=== PATIENT | female | born 1940 | race Caucasian/White ===

== ENCOUNTER 2017-09-27 10:45 | Inpatient (IN) | payer OTHER ==
[~2017-09-27] VITALS: Ht 157.5 cm; Wt 99.5 kg
[2017-09-27 13:18] VITALS: BP 132/67; PULSE 87; TEMP 36.6; O2SAT 94
[2017-09-27 14:08] VITALS: BP 132/67; PULSE 87; TEMP 36.6; Ht 157.5 cm; Wt 99.5 kg
[2017-09-27] MEDS ORDERED: ACET1TAB84 PO (14:29)
--- NOTE | 2017-09-27 14:49 | Medical Consult ---
Consultation Date of Consultation: Sep 27, 2017. Attending Physician: Jesus Goss D.O. Reason for Consultation: Medical Management for DM II, Asthma, CKD III, Pain control and other problems History of Present Illness Patient is a 77-year-old female with past medical history DM II, CKD III, chronic anemia, asthma, anxiety and depression, dyslipidemia, spinal stenosis of lumbar region, HTN, chronic venous stasis, osteoarthritis and other problems was a direct admit for management of her back pain by Dr. Goss. She was asked to be evaluated for medical management while hospitalization. Patient states she has been having ambulatory dysfunction, low back pain radiating the right lower extremity and she was evaluated at [facility] and was diagnosed to have urinary tract infection and was discharged to rehab facility. Patient was admitted to [facility] for management of her back pain. She states having lower back pain radiating right lower extremity, dull aching type of pain, constant, 7/10 intensity, pain increases with exertion and movement, associated intermittent numbness and tingling in legs. She also reports bilateral lower extremity weakness and has been having ambulatory problems, uses a walker to ambulate. She reports having left foot drop 5 years ago. She was prescribed Bactrim for UTI. She continues to have dysuria but denies any history of fever, chills, hematuria. Denies any history of chest pain, SOB, dizziness, cough, wheezing, hemoptysis, headache, change in vision, nausea, vomiting, abdominal pain, diarrhea. Family History Father: Silicosis Mother:Dementia Social History Smoking Status: Former Smoker Alcohol Use: none Drug Use: none Allergies Coded Allergies: Aspirin (Verified Allergy, Unknown, 09/27/17) Hydrochlorothiazide (Verified Allergy, Unknown, 09/27/17) Home Medications Reviewed Review of Systems See HPI for pertinent positives & negatives. A total of 10 systems reviewed and were otherwise negative. Physical Exam Date Time Temp Pulse Resp B/P (MAP) Pulse Ox O2 Delivery O2 Flow Rate FiO2 09/27/17 14:08 36.6 87 17 132/67 Room Air 09/27/17 13:18 36.6 87 17 132/67 (88) 94 Room Air General Appearance: no apparent distress, + obese Head: normocephalic, atraumatic Eyes: normal inspection, PERRL, EOMI ENT: normal ENT inspection, hearing grossly normal Neck: supple, trachea midline Respiratory/Chest: chest non-tender, lungs clear, normal breath sounds, no respiratory distress, no accessory muscle use Cardiovascular: regular rate, rhythm, no murmur, + pertinent finding (chronic leg edema) Abdomen/GI: normal bowel sounds, soft, + tenderness (Mild suprapubic pressure) Back: normal inspection, + paravertebral tenderness (Lumbar region), + pertinent finding (Vertebral lumbar region) Extremities/Musculoskelatal: normal inspection, + pedal edema Neurologic/Psych: classer II-XII nml as tested, alert, normal mood/affect, oriented x 3, + pertinent finding (B/L LE weakness L>R, sensation normal) Skin: normal color, warm/dry Laboratory Results Labs reviewed CXR: No active disease in the chest. Assessment & Plan Spinal Stenosis: Planned for surgery by Activity, Pain control per Ortho UTI: Urine culture: E.coli on 09/24/17 Patient still has dysuria Hold Bactrim (Supposed to complete on 09/30/17) Start Ceftriaxone DM II Last A1C:5.1 on 03/25/17 Will hold oral diabetic meds Update A1c: ISS, basal Insulin, Accu checks, Diabetic diet CKD III Baseline Cr: Mid 1s Cr:1.6 today Bactrim discontinued Monitor renal function May need to hold diuretics if renal function worsens Anemia of CKD Hb stable monitor Chronic Hyponatremia: Baseline Sodium: low 130s Likely 2/2 diuretics and UTI Gentle IV fluids Monitor Sodium levels H/O Asthma No signs of Exacerbation Continue home meds Anxiety and depression Stable continue home meds Dyslipidemia Continue Zetia HTN Stable monitor DVT Px: Heparin SQ Code Status: Full Code Disposition: Per Ortho Thank you for this consultation. We will follow the patient with you during their hospital stay. You can reach a member of the [facility] Hospitalist Team 09/09 via pager @ . will Continue to follow up the patient while patient is hospitalized
[2017-09-27] MEDS ORDERED: CARBOHYDRATES FOR HYPOGLYCEMIA PO PRN (15:00)
[2017-09-27] MEDS ORDERED: GLUCOSE 40% GEL 15 GM TUBE PO PRN (15:00)
[2017-09-27] MEDS ORDERED: GLUCAGON FOR INJ 1 MG VIAL SQ PRN (15:00)
[2017-09-27] MEDS ORDERED: DEXTROSE 50% 50 ML SYR IV PRN (15:00)
[2017-09-27] MEDS ORDERED: GLUCOSE 10 TABS/TUBE PO PRN (15:00)
[2017-09-27 15:31] VITALS: BP 126/71; PULSE 75; TEMP 36.9; O2SAT 93
--- NOTE | 2017-09-27 15:47 | DIAGNOSTIC IMAGING REPORT ---
TWO VIEW CHEST CLINICAL HISTORY: Preoperative examination. FINDINGS: AP and lateral chest radiographs are obtained. No prior studies are available for comparison at the time of dictation. The AP view is degraded by patient rotation. The heart is top normal for projection. The mediastinal contour is within normal limits. Nonspecific interstitial thickening is likely chronic. No airspace consolidation or pleural effusion is identified. A large calcified granuloma is seen at the left lung base. There is no pneumothorax. The skeletal structures are osteopenic. 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 Advanced arthritic change and deformity is present in both shoulders. Large calcified joint bodies are noted on the left. IMPRESSION: No active disease in the chest. Electronically signed by: Jaquan Diane M.D. 09/27/2017 3:46 PM Dictated Date/Time: 09/27/2017 3:44 PM
[2017-09-27] MEDS ORDERED: OMEP20CA9 PO (15:58)
[2017-09-27] MEDS ORDERED: ASPI-461 PO (15:58)
[2017-09-27] MEDS ORDERED: OXYC-164 PO (15:58)
[2017-09-27] MEDS ORDERED: TNR25 PO (15:58)
[2017-09-27] MEDS ORDERED: CHOL100027 PO (15:58)
[2017-09-27] MEDS ORDERED: GLUC10007 PO (15:58)
[2017-09-27] MEDS ORDERED: PLN5 PO (15:58)
[2017-09-27] MEDS ORDERED: CLOT1CRE12 EX (15:58)
[2017-09-27] MEDS ORDERED: SULF800T23 PO (15:58)
[2017-09-27] MEDS ORDERED: ASCO1CAP3 PO (15:58)
[2017-09-27] MEDS ORDERED: POTA10CA28 PO (15:58)
[2017-09-27] MEDS ORDERED: EZET10TA47 PO (15:58)
[2017-09-27] MEDS ORDERED: OXYC40TA34 PO (15:58)
[2017-09-27] MEDS ORDERED: SENN8.6C PO (15:58)
[2017-09-27] MEDS ORDERED: VALS320T PO (15:58)
[2017-09-27] MEDS ORDERED: FLUT0.15 INH (15:58)
[2017-09-27] MEDS ORDERED: TRMCR130WC TOP (15:58)
[2017-09-27] MEDS ORDERED: BACL1TAB PO (15:58)
[2017-09-27] MEDS ORDERED: BYTI10 SC (15:58)
[2017-09-27] MEDS ORDERED: NRN300 PO (15:58)
[2017-09-27] MEDS ORDERED: ADVIN25050 INH (15:58)
[2017-09-27] MEDS ORDERED: FURO40TA3 PO (15:58)
[2017-09-27] MEDS ORDERED: EFFSR75 PO (15:58)
[2017-09-27] MEDS ORDERED: GLC500 PO (15:58)
[2017-09-27] MEDS ORDERED: LORA10CA2 PO (15:58)
[2017-09-27] MEDS ORDERED: [UNRECOGNIZED DRUG - CODE] PO (15:58)
[2017-09-27 16:00] LABS: HEMATOCRIT 31.7 % (37-47); MEAN CELL VOLUME 88.5 fL (80-100); MEAN CORPUSCULAR HEMOGLOBIN 30.7 pg (25-34); MEAN CORPUSCULAR HGB CONC 34.7 g/dl (32-36); MEAN PLATELET VOLUME 9.9 fL (7.4-10.4); PLATELET COUNT 264 K/uL (130-400); RED CELL DISTRIBUTION WIDTH SD 41.8 fL (36.4-46.3); WHITE BLOOD COUNT 8.81 K/uL (4.8-10.8)
[2017-09-27] MEDS ORDERED: LEVALBUTEROL 0.63MG/3 ML NEB INH PRN (16:00)
[2017-09-27] MEDS ORDERED: OXYCODONE HCL IR 5 MG TAB (IMMEDIATE RELEASE) PO PRN (16:00)
[2017-09-27] MEDS ORDERED: POLYETHYLENE (MIRALAX) 17 GM PACK PO PRN (16:15)
[2017-09-27 16:18] LABS: CREATININE 1.62 mg/dl (0.60-1.20); POTASSIUM 4.7 mmol/L (3.5-5.1)
[2017-09-27] MEDS: CEFTRIAXONE SOD INJ 1 GM in DEXTROSE 5% ADD-VANTAGE 50ML 50 ML IV SCH (16:27)
[2017-09-27] MEDS ORDERED: SODIUM CHLORIDE 0.9% 1000ML 500 ML IV ONE (17:30)
[2017-09-27] MEDS: INSULIN ASPART 100 UNITS/ML 3 ML PEN SC SCH ×2 (18:31→21:00)
[2017-09-27 21:00] VITALS: BP 136/65; PULSE 75
[2017-09-27] MEDS: TRIAMCINOLONE ACET 0.1% CR 15 GM TUBE EXT SCH (21:00)
[2017-09-27] MEDS ORDERED: FLUTICASONE/SALMETEROL 250/50 (ADVAIR) 14 PUFF/1 INHALER INH SCH (21:00)
[2017-09-27] MEDS: SENNA 8.6 MG TAB PO SCH (21:21)
[2017-09-27] MEDS: GABAPENTIN 300 MG CAP PO SCH (21:21)
[2017-09-27] MEDS: PANTOprazole SOD 40 MG TAB PO SCH (21:21)
[2017-09-27] MEDS: OXYCODONE HCL 40 MG TABCR (OXYCONTIN) PO SCH (21:22)
[2017-09-27] MEDS: POTASSIUM CHLORIDE 10 MEQ TABCR PO SCH (21:22)
[2017-09-27] MEDS: FLUTICASONE/SALMETEROL 250/50 (ADVAIR) 14 PUFF/1 INHALER INH SCH (21:22)
[2017-09-27] MEDS: INSULIN GLARGINE SOLOSTAR 100 UNITS/ML 3 ML PEN SC SCH (21:25)
[2017-09-27] MEDS: HEPARIN SOD 5000 UNIT/0.5 ML CARP SQ SCH (21:26)
[2017-09-27 23:01] VITALS: BP 122/60; PULSE 79; TEMP 36.8; O2SAT 97
[2017-09-27] MEDS: BACLOFEN 10 MG TAB PO PRN (23:49)
[2017-09-28] MEDS: HEPARIN SOD 5000 UNIT/0.5 ML CARP SQ SCH ×3 (05:49→21:28)
[2017-09-28 07:11] VITALS: BP 137/72; PULSE 66; TEMP 36.8; O2SAT 98
[2017-09-28 07:27] LABS: HEMATOCRIT 28.8 % (37-47); HEMOGLOBIN 9.7 g/dL (12.0-16.0); MEAN CELL VOLUME 88.3 fL (80-100); MEAN CORPUSCULAR HEMOGLOBIN 29.8 pg (25-34); MEAN CORPUSCULAR HGB CONC 33.7 g/dl (32-36); MEAN PLATELET VOLUME 9.4 fL (7.4-10.4); PLATELET COUNT 193 K/uL (130-400); RED CELL DISTRIBUTION WIDTH CV 12.8 % (11.5-14.5); RED CELL DISTRIBUTION WIDTH SD 41.4 fL (36.4-46.3)
[2017-09-28 07:57] LABS: CALCIUM 8.3 mg/dl (8.5-10.1); CREATININE 1.39 mg/dl (0.60-1.20); POTASSIUM 4.2 mmol/L (3.5-5.1)
[2017-09-28] MEDS: LORATADINE 10 MG TAB PO SCH (08:44)
[2017-09-28] MEDS: GABAPENTIN 300 MG CAP PO SCH ×2 (08:45→21:16)
[2017-09-28] MEDS: VENLAFAXINE HCL XR 37.5 MG CAPXR PO SCH (08:45)
[2017-09-28] MEDS: VALSARTAN 80 MG TAB PO SCH (08:45)
[2017-09-28] MEDS: PANTOprazole SOD 40 MG TAB PO SCH ×2 (08:45→21:16)
[2017-09-28] MEDS: POTASSIUM CHLORIDE 10 MEQ TABCR PO SCH ×2 (08:45→21:16)
[2017-09-28] MEDS: FUROSEMIDE 40 MG TAB PO SCH (08:46)
[2017-09-28] MEDS: ASPIRIN 81 MG ECTAB PO SCH (08:46)
[2017-09-28] MEDS: EZETIMIBE 10MG TAB PO SCH (08:47)
[2017-09-28] MEDS: FELODIPINE 5 MG TABCR PO SCH (08:47)
[2017-09-28] MEDS: TRIAMCINOLONE ACET 0.1% CR 15 GM TUBE EXT SCH ×2 (08:48→21:18)
[2017-09-28] MEDS: FLUTICASONE/SALMETEROL 250/50 (ADVAIR) 14 PUFF/1 INHALER INH SCH ×2 (08:48→21:17)
[2017-09-28] MEDS: FLUTICASONE PROPIONATE NA SPR 16 GM BTL SCH (08:48)
[2017-09-28] MEDS: OXYCODONE HCL 40 MG TABCR (OXYCONTIN) PO SCH ×2 (08:57→21:16)
[2017-09-28] MEDS: INSULIN ASPART 100 UNITS/ML 3 ML PEN SC SCH ×4 (08:59→21:00)
[2017-09-28] MEDS: INSULIN GLARGINE SOLOSTAR 100 UNITS/ML 3 ML PEN SC SCH ×2 (09:00→21:29)
[2017-09-28] MEDS: BACLOFEN 10 MG TAB PO PRN ×2 (09:03→23:50)
--- NOTE | 2017-09-28 10:00 | History and Physical ---
History & Physical Date Sep 28, 2017. Chief Complaint Back and bilateral leg pain with weakness History of Present Illness The patient is a 77 year old female with complaints of worsening back and bilateral leg pain. She had been evaluated in our office recently diagnosed with severe multilevel spinal stenosis and right osteoarthritis of the hip. Unfortunately she is noted a significant decline in status. She notes back pain radiating the bilateral buttocks right worse than left extending down the right leg. It markedly limits her ability to stand and ambulate and she notes significant weakness in the right leg. She does have an established left lower extremity foot drop and numbness. She states this has been present for 5 years. She denies any loss of bowel or bladder control. She is comfortable sitting in a chair. Past Medical/Surgical History Medical Problems: (1) Asthma (2) Diabetes (3) Lumbago Additional History Hypertension: Yes Other: Diabetes Obesity Chronic UTI Hypercholesterolemia Allergies Coded Allergies: Aspirin (Verified Allergy, Unknown, 09/27/17) Hydrochlorothiazide (Verified Allergy, Unknown, 09/27/17) Home Medications Scheduled Ascorbic Acid (Vitamin C), 500 MG PO DAILY Aspirin (Aspirin), 81 MG PO DAILY Atenolol (Atenolol), 25 MG PO BID Cholecalciferol (Vitamin D 1000 Unit), 1,000 INTER.UNIT PO DAILY Clotrimazole Vaginal (Clotrimazole), 1 % EX BID Exenatide (Byetta), 10 MCG SC BID Ezetimibe (Zetia), 1 TAB PO DAILY Felodipine (Felodipine ER), 5 MG PO DAILY Fluticasone Prop/Salmeterol (Advair Diskus 250-50 Mcg/Dose), 1 PUFFS INH BID Fluticasone Propionate (Nasal) (Flonase Allergy Relief), 50 MCG INH DAILY Furosemide (Lasix), 80 MG PO DAILY Gabapentin (Gabapentin), 300 MG PO BID Glucosamine Sulfate (Glucosamine), 500 MG PO TID Loratadine (Claritin), 1 CAP PO DAILY Metformin HCl (Metformin HCl), 1,000 MG PO BID Niacin (Slo-Niacin), 500 MG PO DAILY Omeprazole (Prilosec), 1 CAP PO BID Oxycodone Hcl (Oxycontin), 40 MG PO Q12 Potassium Chloride (Micro-K Ext Rel), 10 MEQ PO BID Sennosides (Senna), 1 CAP PO HS Sulfa/Trimethoprim (Bactrim Ds 800MG/160MG), 1 TAB PO BID Triamcinolone Acet (Aristocort 0.1%), 0.1 % TOP BID Valsartan (Diovan), 1 TAB PO DAILY Venlafaxine Hcl (Effexor Extended Rel), 37.5 MG PO DAILY Scheduled PRN Baclofen (Lioresal), 1 TAB PO TID PRN for spasms Oxycodone Hcl (Oxycodone Hcl), 1 TAB PO TID PRN for Pain Physical Examination Addiitonal Comments: On exam patient is in the chair at the bedside. She able to lean forward without difficulty. She has no abnormal skin markings across the lower lumbar spine. Nontender to palpation. She does exhibit marked deficits to plantar flexion dorsiflexion to the left lower extremity reasonable quadriceps strength. Decreased sensation to the left compared to the right. The right demonstrates modest logroll. She has reasonable strength plantar flexion dorsiflexion. Quadriceps does demonstrate breakaway weakness. Deep tendon reflexes are diminished globally. Diagnosis Lumbar spinal stenosis with neurogenic claudication and weakness Plan of Treatment Plan at this time she has noted a marked decline in status and would like to consider surgical intervention. Would require a lumbar decompression and fusion L2-S1. Risks benefits pros cons and alternatives were outlined in detail. Risks include but not limited to from anesthesia by the stroke paralysis nerve damage blood loss current transfusion infection requiring reoperation benefits hopefully being marked improvement of her neurogenic claudication. She does understand that she is pre-existing severe right hip osteoarthritis. This would also most likely require surgery in the future. This time will make her n.p.o. after midnight tonight. We will plan for surgery Friday or Friday as soon as or time becomes available.
--- NOTE | 2017-09-28 10:35 | Progress Note ---
Internal Med Progress Note Date of Service: Sep 28, 2017. Provider Documentation: SUBJECTIVE: The patient was seen and examined by me in medical floor Complains some pain at the back with radiation of pain to the right leg as before Probable lumbar decompression fusion tomorrow Denies any other symptoms OBJECTIVE: Vital Signs-as noted below Exam: General-no apparent distress at rest Out of bed on a chair Eyes-normal ENT-normal Neck-supple Lungs-clear to auscultate bilaterally Heart-regular, no murmur appreciated Abdomen-benign, distended, soft, difficult to feel for organs, bowel sounds present Extremities-trace edema bilaterally Neuro-alert, awake and oriented 3 No focal neuro deficit Lab data as noted below. ASSESSMENT & PLAN: Lumbar spinal stenosis with neurogenic claudication and weakness Planned for surgery by Possible lumbar decompression and fusion tomorrow Activity, Pain control per Ortho UTI:-Urine culture pending Urine culture: E.coli on 09/24/17 Patient still has dysuria Hold Bactrim (Supposed to complete on 09/30/17) Has been on ceftriaxone DM II Last A1C:5.1 on 03/25/17 Will hold oral diabetic meds Update A1c: Pending ISS, basal Insulin, Accu checks, Diabetic diet CKD III Baseline Cr: Mid 1s Cr:1.6 today Bactrim discontinued Monitor renal function May need to hold diuretics if renal function worsens Will start IVF Anemia of CKD Hb dropped From 11 to 9.7 even before surgery and the patient is not getting any IVF monitor Chronic Hyponatremia: Baseline Sodium: low 130s Likely 2/2 diuretics and UTI Gentle IV fluids Monitor Sodium levels H/O Asthma No signs of Exacerbation Continue home meds Anxiety and depression Stable continue home meds Dyslipidemia Continue Zetia HTN Stable monitor DVT Px: Heparin SQ Code Status: Full Code Disposition: Per Ortho Vital Signs: Date Time Temp Pulse Resp B/P (MAP) Pulse Ox O2 Delivery O2 Flow Rate FiO2 09/28/17 07:30 Room Air 09/28/17 07:11 36.8 66 16 137/72 (93) 98 2.0 09/27/17 23:30 Nasal Cannula 2.0 Humidified Oxygen 09/27/17 23:01 36.8 79 18 122/60 (80) 97 Nasal Cannula 2.0 09/27/17 21:00 75 136/65 (88) 09/27/17 16:00 Room Air 09/27/17 15:31 36.9 75 18 126/71 (89) 93 Room Air 09/27/17 14:08 36.6 87 17 132/67 Room Air 09/27/17 13:18 36.6 87 17 132/67 (88) 94 Room Air Lab Results: Results Past 24 Hours Test 09/27/17 14:00 09/27/17 15:23 09/27/17 17:27 09/27/17 18:43 Range/Units Bedside Glucose 121 135 70-90 mg/dl White Blood Count 8.81 4.8-10.8 K/uL Red Blood Count 3.58 4.2-5.4 M/uL Hemoglobin 11.0 12.0-16.0 g/dL Hematocrit 31.7 37-47 % Mean Corpuscular Volume 88.5 80-100 fL Mean Corpuscular Hemoglobin 30.7 25-34 pg Mean Corpuscular Hemoglobin Concent 34.7 32-36 g/dl RDW Standard Deviation 41.8 36.4-46.3 fL RDW Coefficient of Variation 13.0 11.5-14.5 % Platelet Count 264 130-400 K/uL Mean Platelet Volume 9.9 7.4-10.4 fL Sodium Level 130 136-145 mmol/L Potassium Level 4.7 3.5-5.1 mmol/L Chloride Level 94 98-107 mmol/L Carbon Dioxide Level 28 21-32 mmol/L Anion Gap 8.0 3-11 mmol/L Blood Urea Nitrogen 24 7-18 mg/dl Creatinine 1.62 0.60-1.20 mg/dl Est Creatinine Clear Calc Drug Dose 32.1 ml/min Estimated GFR () 35.1 Estimated GFR (Non- 30.3 BUN/Creatinine Ratio 14.9 10-20 Random Glucose 121 70-99 mg/dl Calcium Level 9.0 8.5-10.1 mg/dl Magnesium Level 2.2 1.8-2.4 mg/dl Urine Color YELLOW Urine Appearance CLEAR CLEAR Urine pH 7.0 4.5-7.5 Urine Specific [place] 1.006 1.000-1.030 Urine Protein NEG NEG Urine Glucose (UA) NEG NEG Urine Ketones NEG NEG Urine Occult Blood NEG NEG Urine Nitrite NEG NEG Urine Bilirubin NEG NEG Urine Urobilinogen NEG NEG Urine Leukocyte Esterase TRACE NEG Urine WBC (Auto) 1-5 0-5 /hpf Urine RBC (Auto) 0-4 0-4 /hpf Urine Hyaline Casts (Auto) 0 0-5 /lpf Urine Epithelial Cells (Auto) 5-10 0-5 /lpf Urine Bacteria (Auto) NEG NEG Test 09/27/17 20:40 09/28/17 07:04 09/28/17 08:10 Range/Units Bedside Glucose 156 125 70-90 mg/dl White Blood Count 6.20 4.8-10.8 K/uL Red Blood Count 3.26 4.2-5.4 M/uL Hemoglobin 9.7 12.0-16.0 g/dL Hematocrit 28.8 37-47 % Mean Corpuscular Volume 88.3 80-100 fL Mean Corpuscular Hemoglobin 29.8 25-34 pg Mean Corpuscular Hemoglobin Concent 33.7 32-36 g/dl RDW Standard Deviation 41.4 36.4-46.3 fL RDW Coefficient of Variation 12.8 11.5-14.5 % Platelet Count 193 130-400 K/uL Mean Platelet Volume 9.4 7.4-10.4 fL Sodium Level 132 136-145 mmol/L Potassium Level 4.2 3.5-5.1 mmol/L Chloride Level 96 98-107 mmol/L Carbon Dioxide Level 30 21-32 mmol/L Anion Gap 6.0 3-11 mmol/L Blood Urea Nitrogen 23 7-18 mg/dl Creatinine 1.39 0.60-1.20 mg/dl Est Creatinine Clear Calc Drug Dose 37.4 ml/min Estimated GFR () 42.3 Estimated GFR (Non- 36.5 BUN/Creatinine Ratio 16.4 10-20 Random Glucose 97 70-99 mg/dl Calcium Level 8.3 8.5-10.1 mg/dl Magnesium Level 2.0 1.8-2.4 mg/dl Microbiology Results 09/27/17 MRSA DNA Surveillance Screen - Final, Complete Specimen Negative for MRSA by DNA Probe 09/27/17 Urine Culture, Received Pending
[2017-09-28] MEDS: SODIUM CHLORIDE 0.9% 1000ML 1,000 ML IV SCH ×2 (10:55→23:43)
[2017-09-28 15:48] VITALS: BP 106/63; PULSE 62; TEMP 36.8; O2SAT 97
[2017-09-28] MEDS: CEFTRIAXONE SOD INJ 1 GM in DEXTROSE 5% ADD-VANTAGE 50ML 50 ML IV SCH (16:51)
[2017-09-28 21:00] VITALS: BP 146/76; PULSE 62
[2017-09-28] MEDS: SENNA 8.6 MG TAB PO SCH (21:17)
[2017-09-28 23:10] VITALS: BP 125/67; PULSE 74; TEMP 36.7; O2SAT 98
[2017-09-29] MEDS ORDERED: NURSING DECISION MEDICATION ORDER SCH (04:15)
[2017-09-29] MEDS: HEPARIN SOD 5000 UNIT/0.5 ML CARP SQ SCH ×3 (05:54→21:39)
[2017-09-29] MEDS ORDERED: INSULIN ASPART 100 UNITS/ML 3 ML PEN SC SCH (06:00)
[2017-09-29 06:50] LABS: HEMATOCRIT 29.3 % (37-47); HEMOGLOBIN 10.1 g/dL (12.0-16.0); MEAN CELL VOLUME 88.3 fL (80-100); MEAN CORPUSCULAR HEMOGLOBIN 30.4 pg (25-34); MEAN CORPUSCULAR HGB CONC 34.5 g/dl (32-36); MEAN PLATELET VOLUME 9.3 fL (7.4-10.4); PLATELET COUNT 199 K/uL (130-400); RED CELL DISTRIBUTION WIDTH SD 42.1 fL (36.4-46.3); WHITE BLOOD COUNT 5.91 K/uL (4.8-10.8)
[2017-09-29 07:00] LABS: HEMOGLOBIN A1C 5.5 % (4.5-5.6)
[2017-09-29 07:14] LABS: CALCIUM 8.4 mg/dl (8.5-10.1); CREATININE 1.57 mg/dl (0.60-1.20); POTASSIUM 4.2 mmol/L (3.5-5.1)
[2017-09-29 07:44] VITALS: BP 105/62; PULSE 57; TEMP 36.6; O2SAT 98
[2017-09-29] MEDS ORDERED: NURSING VERBAL MED ORDER ONE (07:45)
[2017-09-29] MEDS: INSULIN ASPART 100 UNITS/ML 3 ML PEN SC SCH ×4 (08:00→21:00)
[2017-09-29] MEDS: FUROSEMIDE 40 MG TAB PO SCH (09:00)
[2017-09-29] MEDS: VALSARTAN 80 MG TAB PO SCH (09:00)
[2017-09-29] MEDS: FLUTICASONE/SALMETEROL 250/50 (ADVAIR) 14 PUFF/1 INHALER INH SCH ×2 (10:28→21:28)
[2017-09-29] MEDS: GABAPENTIN 300 MG CAP PO SCH ×2 (10:29→21:27)
[2017-09-29] MEDS: TRIAMCINOLONE ACET 0.1% CR 15 GM TUBE EXT SCH ×2 (10:29→21:27)
[2017-09-29] MEDS: POTASSIUM CHLORIDE 10 MEQ TABCR PO SCH ×2 (10:29→21:27)
[2017-09-29] MEDS: FLUTICASONE PROPIONATE NA SPR 16 GM BTL SCH (10:29)
[2017-09-29] MEDS: ASPIRIN 81 MG ECTAB PO SCH (10:29)
[2017-09-29] MEDS: LORATADINE 10 MG TAB PO SCH (10:29)
[2017-09-29] MEDS: VENLAFAXINE HCL XR 37.5 MG CAPXR PO SCH (10:30)
[2017-09-29] MEDS: FELODIPINE 5 MG TABCR PO SCH (10:30)
[2017-09-29] MEDS: EZETIMIBE 10MG TAB PO SCH (10:31)
[2017-09-29] MEDS: PANTOprazole SOD 40 MG TAB PO SCH ×2 (10:31→21:27)
--- NOTE | 2017-09-29 10:34 | Hospitalist Progress Note ---
Hospitalist Progress Note Date of Service Sep 29, 2017. (Binta Berger, ROSELIAC) Subjective Pt evaluation today including: conversation w/ patient, physical exam, chart review, lab review, review of studies Patient seen and examined. Patient sitting up in bed. Just finished eating breakfast. Reports her back pain and right leg pain is "my normal amount of pain that I deal with". Denies any worsening. Patient feels pain medications have been helping some. Awaiting recommendations from Dr Goss, probable pending surgery, possible later today or tomorrow. States has overall decreased dysuria. Denies hematuria. Denies any loss control of bowel or bladder. Reports chronic BLE edema, worse at end of day and pt states since has been in hospital with legs elevated has had much improvement. Denies wheezing or SOB. Uses oxygen 2L HS chronically. Denies fever/chills, diaphoresis, N/V/D/C, MANN, dizziness, syncope, neck pain, CP, orthopnea, palpitations, cough, abdominal pain, increased extremity edema. (Binta Berger PA-C) Objective Vital Signs Date Time Temp Pulse Resp B/P (MAP) Pulse Ox O2 Delivery O2 Flow Rate FiO2 09/29/17 07:44 36.6 57 18 105/62 (76) 98 Nasal Cannula 1.0 Humidified Oxygen 09/28/17 23:40 Nasal Cannula 2.0 Humidified Oxygen 09/28/17 23:10 36.7 74 18 125/67 (86) 98 Room Air 09/28/17 21:00 62 146/76 (99) 09/28/17 16:00 Room Air 09/28/17 15:48 36.8 62 18 106/63 (77) 97 Room Air (Binta Berger PA-C) Physical Exam General Appearance: no apparent distress, + obese Eyes: normal inspection, sclerae normal ENT: hearing grossly normal, pharynx normal, + pertinent finding (mucous membranes moist) Neck: supple, trachea midline Respiratory/Chest: lungs clear, normal breath sounds, no respiratory distress Cardiovascular: regular rate, rhythm Abdomen: normal bowel sounds, non tender, soft (distended secondary to adipose tissue) Extremities: non-tender, normal capillary refill, + pedal edema (trace), + pertinent finding (chronic left foot drop; distal pulses intact) Neurologic/Psychiatric: alert, normal mood/affect, oriented x 3 Skin: warm/dry (Binta Berger PA-C) Laboratory Results Last 24 Hours Test 09/28/17 11:58 09/28/17 17:20 09/28/17 20:29 09/29/17 05:53 Bedside Glucose 113 mg/dl 150 mg/dl 124 mg/dl 106 mg/dl Test 09/29/17 06:23 White Blood Count 5.91 K/uL Red Blood Count 3.32 M/uL Hemoglobin 10.1 g/dL Hematocrit 29.3 % Mean Corpuscular Volume 88.3 fL Mean Corpuscular Hemoglobin 30.4 pg Mean Corpuscular Hemoglobin Concent 34.5 g/dl RDW Standard Deviation 42.1 fL RDW Coefficient of Variation 13.0 % Platelet Count 199 K/uL Mean Platelet Volume 9.3 fL Sodium Level 133 mmol/L Potassium Level 4.2 mmol/L Chloride Level 98 mmol/L Carbon Dioxide Level 28 mmol/L Anion Gap 7.0 mmol/L Blood Urea Nitrogen 24 mg/dl Creatinine 1.57 mg/dl Est Creatinine Clear Calc Drug Dose 33.1 ml/min Estimated GFR () 36.5 Estimated GFR (Non- 31.5 BUN/Creatinine Ratio 15.4 Random Glucose 98 mg/dl Calcium Level 8.4 mg/dl (Binta Berger, LAURA-C) Assessment and Plan LUMBAR SPINAL STENOSIS WITH NEUROGENIC CLAUDICATION AND WEAKNESS -Possible lumbar decompression and fusion by Dr Goss later today or tomorrow -Continue OxyContin, oxycodone for breakthrough pain, baclofen, gabapentin, further pain management per ortho -PT/OT as appropriate UTI Urine culture: E.coli on 09/24/17 Urine culture 09/27/17: probable contaminate -Patient's dysuria has improved -Initially was treated with Bactrim and was to complete Rx on 09/30/17 -Bactrim has been held and been on ceftriaxone since 09/27/17 DM II HA1c: 5.5 09/2017 -Hold oral diabetic meds -ISS, basal Insulin per protocol - Accu checks, Diabetic diet CKD III Baseline Cr: Mid 1s Cr:1.57 today -Bactrim was discontinued -Monitor renal function -May need to hold diuretics if renal function worsens -IVF ANEMIA OF CKD Hgb: 10.1 today. (baseline 10-11) -monitor H&H CHRONIC HYPONATREMIA: Today Na: 133. Baseline Sodium: low 130s, Likely 2/2 diuretics. Gentle IV fluids -monitor prp H/O ASTHMA No signs of Exacerbation. No CP, SOB, wheezing. -Continue advair, nebs prn -continue oxygen 2L NC HS ANXIETY AND DEPRESSION -Stable, continue Effexor DYSLIPIDEMIA -Continue Zetia HTN Stable -Continue atenolol, felodipine, lasix, valsartan -Plan to hold valsartan, lasix the morning of surgery GERD -continue PPI DVT PROPHYLAXIS: Heparin SQ -Plan to hold heparin SQ morning dose prior to planned surgery CODE STATUS: Full Code Disposition: Per Ortho Follows with Dr for routine care Pt was seen with Dr Diallo. See addendum Pt will be followed by Dr Diallo during remaining hospital course. (Binta Berger ., BAM) Pt was seen and examined . Agreed with Binta KUHN exam, assessment and Plan. Pt said that she continue to have pain in her lower back area. Planning for lumbar decompression and fusion by Dr Goss tomorrow. Denies any chest pain, palpitation and SOB. Clinically stable to proceed with the procedure. Continue OxyContin, oxycodone for breakthrough pain, baclofen, gabapentin, further pain management per ortho. Continue monitor. MD Imani (Carina Diallo M.D.)
[2017-09-29] MEDS: INSULIN GLARGINE SOLOSTAR 100 UNITS/ML 3 ML PEN SC SCH ×2 (10:37→21:38)
[2017-09-29] MEDS: OXYCODONE HCL 40 MG TABCR (OXYCONTIN) PO SCH ×2 (10:56→21:27)
[2017-09-29] MEDS: SODIUM CHLORIDE 0.9% 1000ML 1,000 ML IV SCH (12:03)
[2017-09-29 15:17] VITALS: BP 103/55; PULSE 55; TEMP 36.5; O2SAT 97
--- NOTE | 2017-09-29 15:40 | Progress Note ---
Progress Note Date of Service Sep 29, 2017. Progress Note Patient's is with her today. And long discussion today regarding her surgical procedure. We are planning for first case in the a.m. Again it will require a multilevel lumbar decompression fusion. All questions were addressed.
[2017-09-29] MEDS: CEFTRIAXONE SOD INJ 1 GM in DEXTROSE 5% ADD-VANTAGE 50ML 50 ML IV SCH (16:10)
[2017-09-29 21:00] VITALS: BP 117/64; PULSE 55
[2017-09-29] MEDS: SENNA 8.6 MG TAB PO SCH (21:27)
[2017-09-29] MEDS: BACLOFEN 10 MG TAB PO PRN (21:30)
[2017-09-29 23:30] VITALS: BP 118/53; PULSE 58; TEMP 36.7; O2SAT 98
[2017-09-30] VITALS (11 sets, daily range): BP systolic 103–135; BP diastolic 54–74; PULSE 57–83; TEMP 36.4–36.8; O2SAT 99–100
[2017-09-30] MEDS: SODIUM CHLORIDE 0.9% 1000ML 1,000 ML IV SCH ×3 (00:01→19:02)
[2017-09-30] MEDS ORDERED: FENTANYL CITRATE INJ 50 MCG/1 ML 2 ML VIAL ONE ×6 (06:41→10:29)
[2017-09-30] MEDS ORDERED: MIDAZOLAM HCL 1 MG/ML 2ML VIAL ONE (06:41)
[2017-09-30] MEDS ORDERED: SODIUM CHLORIDE 0.9% PF 50 ML VIAL ONE (06:52)
[2017-09-30] MEDS ORDERED: BUPIVACAINE/EPINEPHRINE 0.5% MPF 1:200,000 30 ML VIAL ONE (06:52)
[2017-09-30] MEDS ORDERED: BACITRACIN 50000 UNIT VIAL ONE (06:53)
[2017-09-30] MEDS ORDERED: BUPIVACAINE LIPOSOME 1/3% 266 MG/20 ML VIAL ONE (06:53)
[2017-09-30] MEDS ORDERED: BUPIVACAINE 0.5 % 5 MG/1 ML PF 10ML VIAL ONE (06:53)
[2017-09-30] MEDS ORDERED: ALBUMIN HUMAN 5% 12.5 GM/250 ML VIAL IV ONE ×2 (07:14→10:10)
--- NOTE | 2017-09-30 07:57 | History & Physical Bridge Note ---
H&P Re-Evaluation Bridge Note: I have examined the patient, reviewed the History & Physical and in the interval since the performance of the History & Physical I have noted the following changes of clinical significance: No changes noted
[2017-09-30] MEDS: INSULIN ASPART 100 UNITS/ML 3 ML PEN SC SCH ×4 (08:00→21:33)
[2017-09-30] MEDS ORDERED: EpHEDrine SULFATE INJ 50 MG/ML AMP IV PRN (08:00)
[2017-09-30] MEDS ORDERED: ONDANSETRON INJ 2 MG/ML 2 ML VIAL IV PRN ×2 (08:00→11:30)
[2017-09-30] MEDS ORDERED: HYDROmorphone INJ 1 MG/ML SYR IV PRN (08:00)
[2017-09-30] MEDS ORDERED: PROMETHAZINE HCL INJ 6.25 MG in SODIUM CHLORIDE 0.9% 50ML 50 ML IV PRN (08:00)
[2017-09-30] MEDS ORDERED: ATROPINE SULFATE 0.1 MG/ML 5ML SYR IV PRN (08:00)
[2017-09-30] MEDS ORDERED: CEFAZOLIN SOD 2000MG/15 ML IV PUSH ONE (08:03)
[2017-09-30] MEDS: PANTOprazole SOD 40 MG TAB PO SCH ×2 (09:00→21:30)
[2017-09-30] MEDS: FELODIPINE 5 MG TABCR PO SCH (09:00)
[2017-09-30] MEDS: EZETIMIBE 10MG TAB PO SCH (09:00)
[2017-09-30] MEDS: INSULIN GLARGINE SOLOSTAR 100 UNITS/ML 3 ML PEN SC SCH ×2 (09:00→21:34)
[2017-09-30] MEDS: ASPIRIN 81 MG ECTAB PO SCH (09:00)
[2017-09-30] MEDS: LORATADINE 10 MG TAB PO SCH (09:00)
[2017-09-30] MEDS: TRIAMCINOLONE ACET 0.1% CR 15 GM TUBE EXT SCH ×2 (09:00→21:00)
[2017-09-30] MEDS: OXYCODONE HCL 40 MG TABCR (OXYCONTIN) PO SCH ×2 (09:00→21:29)
[2017-09-30] MEDS: FLUTICASONE/SALMETEROL 250/50 (ADVAIR) 14 PUFF/1 INHALER INH SCH ×2 (09:00→21:30)
[2017-09-30] MEDS: FLUTICASONE PROPIONATE NA SPR 16 GM BTL SCH (09:00)
[2017-09-30] MEDS: GABAPENTIN 300 MG CAP PO SCH ×2 (09:00→21:30)
[2017-09-30] MEDS: POTASSIUM CHLORIDE 10 MEQ TABCR PO SCH ×2 (09:00→21:29)
[2017-09-30] MEDS: VENLAFAXINE HCL XR 37.5 MG CAPXR PO SCH (09:00)
[2017-09-30] MEDS ORDERED: HYDROmorphone INJ 2 MG/ML SYR/VIAL ONE ×4 (09:32→11:40)
[2017-09-30 09:59] LABS: HEMATOCRIT 26.2 % (37-47); HEMOGLOBIN 8.9 g/dL (12.0-16.0)
[2017-09-30] MEDS ORDERED: LIDOCAINE HCL 2% 2 ML VIAL (20MG/ML) ONE (09:59)
[2017-09-30] MEDS ORDERED: EpHEDrine SULFATE 50MG/5ML SYR ONE ×2 (09:59→10:51)
[2017-09-30] MEDS ORDERED: PROPOFOL IV EMULSION 10 MG/ML 20 ML VIAL ONE (09:59)
[2017-09-30] MEDS ORDERED: DEXAMETHASONE SOD INJ 4 MG/ML VIAL ONE (09:59)
[2017-09-30] MEDS ORDERED: CALCIUM CHLORIDE 10% 10 ML SYR ONE (10:51)
[2017-09-30] MEDS ORDERED: ONDANSETRON INJ 2 MG/ML 2 ML VIAL ONE ×2 (10:51→12:21)
[2017-09-30] MEDS ORDERED: PHENYLEPHRINE 100MCG/ML 5ML SYR ONE (10:51)
[2017-09-30] MEDS ORDERED: CEFAZOLIN SOD 1 GM VIAL ONE ×2 (10:51→12:21)
[2017-09-30 11:04] LABS: HEMATOCRIT 26.8 % (37-47); HEMOGLOBIN 9.2 g/dL (12.0-16.0)
[2017-09-30] MEDS ORDERED: FLOSEAL HEMOSTATIC MATRIX 10ML TOP ONE (11:11)
--- NOTE | 2017-09-30 11:19 | [facility] Operative Report ---
Operative Report Operative Date Sep 30, 2017. Pre-Operative Diagnosis Lumbar spinal stenosis with neurogenic claudication and weakness Post-Operative Diagnosis Lumbar spinal stenosis with neurogenic claudication and weakness Procedure(s) Performed 1. Lumbar decompression medial facetectomies foraminotomies L3 L3-4 L4-5 L5-S1. #2 posterior spinal fusion L2-3 L3-4 L4-5 L5-S1. #3 history of posterior segmental instrumentation L2-3 L3-4 L4-5 L5-S1. #4 body fusion L4-5. #5 placement of titanium 11 x 22 mm cage L4-5. #6 basement of local autograft in the posterior gutters. #7 placement InFUSE collagen sponge, with master graft in the posterior lateral gutters and ostial amp in the interbody space. Surgeon Dr. Goss Trading Specialist Surgeon(s) Verenice De La Garza PA-C Estimated Blood Loss 1600ml Findings Severe multilevel spinal stenosis Specimens none per surgeon Anesthesia Type General Description of Procedure Patient was met with preoperatively case discussed all questions addressed. After informed consent obtained patient was taken to the operative suite underwent intubation and placed in a prone position on the Jono table on top of the Mckay. All bony prominences well-padded eyes inspected to ensure no external pressure placed upon the. This point the lumbar spine was prepped and draped in the normal sterile fashion. Sharp dissection with the assistance of Bovie cautery was performed down to and exposing the lamina and transverse processes of L2 L3-L4-L5 and sacral ala bilaterally. From a caudal to cephalad fashion complete laminectomy of L5 L4 L3 and L2 was performed addressing severe lateral recess and foraminal disease. Pedicle screws were then placed in L2-L3- L4 L5-S1 levels bilaterally with the assistance of fluoroscopy and the appropriately sized ranulfo placed. Through a transforaminal approach on the right complete discectomy of L4-5 was performed endplates created to subcortical bleeding bone and a 11 x 22 mm titanium cage filled with ostium bone graft tapped in position. The rods were then locked in final position bilaterally. Cross-link locked in position. 120 cc of Exparel injected in the musculature. 15 round PATRICIA drain inserted. Incision was then closed with 1 Vicryl fascia 2-0 Vicryl subcutaneous and 4 Monocryl for fast closure Steri-Strips sterile dressings placed. Patient will continue to PACU stable disc. Please note Altagracia De La Garza was present throughout the entire procedure involved in patient positioning complex portions of the surgery and fashion closure. I attest to the content of the Intraoperative Record and any orders documented therein. Any exceptions are noted below.
[2017-09-30] MEDS ORDERED: HYDROmorphone INJ 0.5 MG/0.5 ML SYR IV PRN (11:30)
[2017-09-30] MEDS ORDERED: DO NOT ADMINISTER FLU VACCINE PRN (11:30)
[2017-09-30] MEDS ORDERED: SOD PHOSPHATE/SOD BIPHOSPHATE ENEMA 132 ML BTL PR PRN (11:30)
[2017-09-30] MEDS ORDERED: PROMETHAZINE HCL INJ 12.5 MG in SODIUM CHLORIDE 0.9% 50ML 50 ML IV PRN (11:30)
[2017-09-30] MEDS ORDERED: OXYCODONE HCL IR 5 MG TAB (IMMEDIATE RELEASE) PO PRN (11:30)
[2017-09-30] MEDS ORDERED: ALUMINUM/MAGNESIUM SUSP 30 ML UDC PO PRN (11:30)
[2017-09-30] MEDS ORDERED: BISACODYL 10 MG SUPP PR PRN (11:30)
[2017-09-30] MEDS ORDERED: METOCLOPRAMIDE HCL INJ 5 MG/ML 2 ML VIAL IV PRN (11:30)
[2017-09-30] MEDS ORDERED: FAMOTIDINE 20 MG TAB PO PRN (11:30)
[2017-09-30] MEDS ORDERED: LORAZEPAM 0.5 MG TAB PO PRN (11:30)
[2017-09-30] MEDS ORDERED: ACETAMINOPHEN IV 100 ML IV PRN (11:30)
[2017-09-30] MEDS ORDERED: CEFAZOLIN IV 2,000 MG in DEXTROSE 5% 50ML 50 ML IV SCH (11:30)
[2017-09-30] MEDS ORDERED: DO NOT ADMINISTER PNEUMOCOCCAL VACCINE PRN (11:30)
[2017-09-30] MEDS ORDERED: LORAZEPAM INJ 0.5 MG in SYRINGE 0 ML IV PRN (11:30)
[2017-09-30] MEDS ORDERED: NALOXONE HCL 0.4 MG/1 ML VIAL/CARP IV PRN (11:30)
[2017-09-30] MEDS ORDERED: MAGNESIUM HYDROXIDE SUSP 30 ML UDC PO PRN (11:30)
[2017-09-30] MEDS ORDERED: NURSING VERBAL MED ORDER ONE (12:00)
[2017-09-30] MEDS: FENTANYL CITRATE INJ 50 MCG/1 ML 2 ML VIAL IV PRN ×4 (12:09→12:39)
--- NOTE | 2017-09-30 12:17 | DIAGNOSTIC IMAGING REPORT ---
INTRAOPERATIVE RADIOGRAPHS CLINICAL HISTORY: L2-S1 spinal fusion. Fluoroscopy time: 37 seconds. FINDINGS: 4 spot fluoroscopic views of the lumbar spine are presented. There has been discectomy at L4-L5 with laminectomy and posterior fusion from L2 -S1. Interpedicular screws are present at all levels. The orthopedic hardware appears intact. IMPRESSION: Intraoperative images from L2 -S1 spinal fusion as above. Electronically signed by: Jaquan Diane M.D. 09/30/2017 12:16 PM Dictated Date/Time: 09/30/2017 12:15 PM
[2017-09-30] MEDS ORDERED: ESMOLOL HCL 10 MG/ML 10 ML VIAL ONE (12:21)
[2017-09-30] MEDS ORDERED: NEOSTIGMINE METHYLSULFATE 1 MG/ML 10ML VIAL ONE (12:21)
[2017-09-30] MEDS ORDERED: GLYCOPYRROLATE INJ 0.2 MG/ML VIAL ONE (12:21)
[2017-09-30 12:23] LABS: HEMATOCRIT 27.9 % (37-47); HEMOGLOBIN 9.4 g/dL (12.0-16.0); MEAN CELL VOLUME 88.3 fL (80-100); MEAN CORPUSCULAR HEMOGLOBIN 29.7 pg (25-34); MEAN CORPUSCULAR HGB CONC 33.7 g/dl (32-36); MEAN PLATELET VOLUME 9.6 fL (7.4-10.4); PLATELET COUNT 178 K/uL (130-400); RED CELL DISTRIBUTION WIDTH SD 42.3 fL (36.4-46.3)
[2017-09-30 13:02] LABS: CALCIUM 9.1 mg/dl (8.5-10.1); CREATININE 1.3 mg/dl (0.60-1.20); POTASSIUM 4.3 mmol/L (3.5-5.1)
--- NOTE | 2017-09-30 13:07 | Anesthesiology Progress Note ---
Anesthesia Post Op Note Date & Time Sep 30, 2017 at 13:05 Vital Signs Pain Intensity: 0 Vital Signs Past 12 Hours Date Time Temp Pulse Resp B/P (MAP) Pulse Ox O2 Delivery O2 Flow Rate FiO2 09/30/17 12:55 36.1 77 12 125/71 100 Nasal Cannula 2 09/30/17 12:45 67 24 140/61 100 Nasal Cannula 2 09/30/17 12:35 64 12 139/65 100 Nasal Cannula 2 09/30/17 12:25 69 14 133/63 100 Nasal Cannula 2 09/30/17 12:15 68 18 137/79 100 Oxymask 10 09/30/17 12:05 74 23 143/80 100 Oxymask 10 09/30/17 11:56 36.1 80 16 162/75 98 Oxymask 10 09/30/17 06:25 36.6 57 18 103/54 (70) 99 Nasal Cannula 2.0 Notes Mental Status: alert / awake / arousable, participated in evaluation Pt Amnestic to Procedure: Yes Nausea / Vomiting: adequately controlled Pain: adequately controlled Airway Patency, RR, SpO2: stable & adequate BP & HR: stable & adequate Hydration State: stable & adequate Anesthetic Complications: no major complications apparent Patient was transfused 2 units RBC in OR for slow continued operative blood loss and requirement for hemodynamic support. In PACU Hb >9, patient hemodynamically stable, and asymptomatic.
--- NOTE | 2017-09-30 15:53 | Hospitalist Progress Note ---
Hospitalist Progress Note Date of Service Sep 30, 2017. (Melnai Gordon ., ZACH) Subjective Patient seen and examined. This morning patient underwent L2-S1 decompression fusion with Dr. Goss. Postoperatively patient is rating her pain 10/10, however is resting in bed no apparent distress. Reports pain is radiating down the outside of her right leg. Denies numbness and tingling. No chest pain or shortness of breath. Denies nausea and abdominal pain. (Melani Gordon ., ZACH) Objective Vital Signs Date Time Temp Pulse Resp B/P (MAP) Pulse Ox O2 Delivery O2 Flow Rate FiO2 09/30/17 13:56 100 Nasal Cannula 2.0 Humidified Oxygen 09/30/17 13:55 36.4 72 16 135/74 (94) 100 Nasal Cannula 2.0 Humidified Oxygen 09/30/17 13:49 100 Nasal Cannula 2.0 Humidified Oxygen 09/30/17 13:30 70 12 131/66 100 Nasal Cannula 2 09/30/17 13:15 68 13 129/60 100 Nasal Cannula 2 09/30/17 13:05 70 12 131/68 100 Nasal Cannula 2 09/30/17 12:55 36.1 77 12 125/71 100 Nasal Cannula 2 09/30/17 12:45 67 24 140/61 100 Nasal Cannula 2 09/30/17 12:35 64 12 139/65 100 Nasal Cannula 2 09/30/17 12:25 69 14 133/63 100 Nasal Cannula 2 09/30/17 12:15 68 18 137/79 100 Oxymask 10 09/30/17 12:05 74 23 143/80 100 Oxymask 10 09/30/17 11:56 36.1 80 16 162/75 98 Oxymask 10 09/30/17 06:25 36.6 57 18 103/54 (70) 99 Nasal Cannula 2.0 09/29/17 23:55 Nasal Cannula Humidified Oxygen 09/29/17 23:30 36.7 58 20 118/53 (74) 98 Nasal Cannula 2.0 09/29/17 21:00 55 117/64 (81) 09/29/17 16:00 Room Air 09/29/17 15:17 36.5 55 18 103/55 (71) 97 Room Air (Melani Gordon ., ZACH) Physical Exam General Appearance: no apparent distress Respiratory/Chest: lungs clear, normal breath sounds, no respiratory distress Cardiovascular: regular rate, rhythm, + pertinent finding (Trace edema BLE) Abdomen: normal bowel sounds, non tender, soft, no organomegaly Extremities: + pertinent finding (/P back surgery, drain in place draining bloody drainage, pedal pushes and pulls strong bilaterally) Neurologic/Psychiatric: alert, oriented x 3 (Melani Gordon ., ZACH) Laboratory Results Item Value Date Time White Blood Count 7.60 K/uL 09/30/17 1214 Hemoglobin 9.4 g/dL L 09/30/17 1214 Hematocrit 27.9 % L 09/30/17 1214 Platelet Count 178 K/uL 09/30/17 1214 Sodium Level 133 mmol/L L 09/30/17 1214 Potassium Level 4.3 mmol/L 09/30/17 1214 Creatinine 1.30 mg/dl H 09/30/17 1214 (Melani Gordon ., ZACH) Assessment and Plan LUMBAR SPINAL STENOSIS WITH NEUROGENIC CLAUDICATION AND WEAKNESS S/P L2-S1 DECOMPRESSION AND FUSION - POD#0 - activity and wound care orders as per ortho - pain control with bowel regimen - PT/OT - monitor H/H for acute blood loss anemia and transfuse blood products PRN - EBL 1600 cc, will recheck hemoglobin at 2100 UTI (POA) -Outpatient urine culture positive for E. coli on 09/24/17 -Was given Bactrim as an outpatient and started on ceftriaxone inpatient -Currently on day #4 of ceftriaxone, will DC after tomorrow's dose DM II -Hgb A1c 5.5 09/2017 -Hold oral diabetic meds -On NovoLog and Lantus per protocol while hospitalized -Monitor for hyperglycemia postoperatively secondary to steroids HTN -BP controlled, continue atenolol and felodipine -Lasix and valsartan held in light of surgery -likely can be resumed tomorrow CKD III - baseline creat runs in the mid ones - creat noted to be 1.3 today - continue to monitor, avoid nephrotoxic agents when able ANEMIA OF CKD -Baseline hemoglobin 10-11 CHRONIC HYPONATREMIA -Baseline sodium in the low 130s -Likely due to diuretics -Diuretics on hold, receiving gentle IVF ASTHMA -No signs of acute exacerbation, continue home inhalers ANXIETY AND DEPRESSION -Stable, continue Effexor DYSLIPIDEMIA -Continue Zetia GERD -continue PPI DVT PROPHYLAXIS -Received heparin preoperatively now on teds/SCDs as per spine orthopedics (Melani Gordon ., ZACH) Pt was seen and examined . Agreed with Melani SERRANO exam, assessment and Plan. Pt had lumbar decompression and fusion surgery done today by Dr Goss. Pt said that she is having alot of pain. Denies any chest pain, palpitation and SOB. On OxyContin, oxycodone for breakthrough pain, baclofen, gabapentin. Monitor H/H. Continue incentive spirometry. PT/OT. Fall precaution. Continue monitor. MD Imani (Carina Diallo M.D.)
[2017-09-30] MEDS: CEFTRIAXONE SOD INJ 1 GM in DEXTROSE 5% ADD-VANTAGE 50ML 50 ML IV SCH (15:56)
[2017-09-30] MEDS: BACLOFEN 10 MG TAB PO PRN (20:26)
[2017-09-30] MEDS: DOCUSATE SODIUM/SENNA 50/8.6MG TAB PO SCH (21:30)
[2017-09-30 21:31] LABS: HEMOGLOBIN 8.2 g/dL (12.0-16.0)
[2017-10-01] VITALS (17 sets, daily range): BP systolic 93–121; BP diastolic 50–86; PULSE 60–84; TEMP 36.6–37.5; O2SAT 93–99
[2017-10-01] MEDS: SODIUM CHLORIDE 0.9% 1000ML 1,000 ML IV SCH ×2 (01:37→13:28)
[2017-10-01 06:29] LABS: BASO % 0.1 %; BASO ABS # 0.01 K/uL (0-0.2); EOS % 0.1 %; EOS ABS # 0.01 K/uL (0-0.5); HEMOGLOBIN 7.2 g/dL (12.0-16.0); IG# 0.03 K/uL (0.00-0.02); LYMPH % 11.3 %; LYMPH ABS # 1.08 K/uL (1.2-3.4); MEAN CELL VOLUME 87.5 fL (80-100); MEAN CORPUSCULAR HGB CONC 34.3 g/dl (32-36); MEAN PLATELET VOLUME 9.6 fL (7.4-10.4); MONO % 11.6 %; NEUT % 76.6 %; NEUT ABS # 7.29 K/uL (1.4-6.5); PLATELET COUNT 178 K/uL (130-400); RED CELL DISTRIBUTION WIDTH CV 13.6 % (11.5-14.5); RED CELL DISTRIBUTION WIDTH SD 43.5 fL (36.4-46.3); WHITE BLOOD COUNT 9.52 K/uL (4.8-10.8)
[2017-10-01 06:56] LABS: CALCIUM 7.9 mg/dl (8.5-10.1); CREATININE 1.19 mg/dl (0.60-1.20); POTASSIUM 4.4 mmol/L (3.5-5.1)
[2017-10-01] MEDS: ACETAMINOPHEN 500 MG TAB PO PRN ×2 (07:46→18:22)
--- NOTE | 2017-10-01 08:23 | Clinical Documentation Query ---
CLINICAL DOCUMENTATION QUERY 77-y/o female who has undergone major back surgery. During surgery she had an EBL of 1600 ml's. In your clinical opinion is this patient being managed for: ( x ) Acute blood loss anemia treated with 3 units PRBC's (NOT a complication of care) ( ) Intraoperative hemorrhage (a complication of care) ( ) Not Agree ( ) Other explanation of clinical findings (No explanation is considered a No Response) ( ) Unable to determine ( ) Need to Discuss (Phone CDS or qliq) (No discussion is considered a No Response) The medical record reflects the following clinical findings, treatment, and risk factors. Clinical Indicators: As above. Hgb 7.2, Hct 21.0, Treatment: Multiple IVF boluses, 3 units of PRBC's Risk Factors: Age, major spinal surgery, chronic anemia, Please clarify and document your clinical opinion in the progress notes and discharge summary. Terms such as "probable", "suspected", "likely", "questionable", "possible", or "still to be ruled out" are acceptable. IF IN AGREEMENT, YOU MUST DOCUMENT ABOVE DIAGNOSTIC STATEMENT IN DAILY PROGRESS NOTES AND DISCHARGE SUMMARY. This document is not part of the patient's record. Thank You, Jorge Iqbal, RN [phone] & via qlicCONNECT
--- NOTE | 2017-10-01 08:24 | Clinical Documentation Query ---
CLINICAL DOCUMENTATION QUERY 77-y/o female who has undergone major back surgery. During surgery she had an EBL of 1600 ml's. In your clinical opinion is this patient being managed for: ( ) Acute blood loss anemia treated with 3 units PRBC's (not a complication of care) ( ) Not Agree ( ) Other explanation of clinical findings (No explanation is considered a No Response) ( ) Unable to determine ( ) Need to Discuss (Phone CDS or qliq) (No discussion is considered a No Response) The medical record reflects the following clinical findings, treatment, and risk factors. Clinical Indicators: As above. Hgb 7.2, Hct 21.0, Treatment: Multiple IVF boluses, 3 units of PRBC's Risk Factors: Age, major spinal surgery, chronic anemia, Please clarify and document your clinical opinion in the progress notes and discharge summary. Terms such as "probable", "suspected", "likely", "questionable", "possible", or "still to be ruled out" are acceptable. IF IN AGREEMENT, YOU MUST DOCUMENT ABOVE DIAGNOSTIC STATEMENT IN DAILY PROGRESS NOTES AND DISCHARGE SUMMARY. This document is not part of the patient's record. Thank You, Jorge Iqbal RN [phone] & via qlicCONNECT
[2017-10-01] MEDS: FLUTICASONE/SALMETEROL 250/50 (ADVAIR) 14 PUFF/1 INHALER INH SCH ×2 (09:11→21:37)
[2017-10-01] MEDS: FLUTICASONE PROPIONATE NA SPR 16 GM BTL SCH (09:11)
[2017-10-01] MEDS: PANTOprazole SOD 40 MG TAB PO SCH ×2 (09:12→21:36)
[2017-10-01] MEDS: EZETIMIBE 10MG TAB PO SCH (09:12)
[2017-10-01] MEDS: LORATADINE 10 MG TAB PO SCH (09:12)
[2017-10-01] MEDS: GABAPENTIN 300 MG CAP PO SCH ×2 (09:12→21:34)
[2017-10-01] MEDS: TRIAMCINOLONE ACET 0.1% CR 15 GM TUBE EXT SCH ×2 (09:12→21:00)
[2017-10-01] MEDS: POTASSIUM CHLORIDE 10 MEQ TABCR PO SCH ×2 (09:12→21:34)
[2017-10-01] MEDS: FELODIPINE 5 MG TABCR PO SCH (09:13)
[2017-10-01] MEDS: BACLOFEN 10 MG TAB PO PRN ×2 (09:13→17:03)
[2017-10-01] MEDS: ASPIRIN 81 MG ECTAB PO SCH (09:13)
--- NOTE | 2017-10-01 09:15 | Anesthesiology Progress Note ---
Anesthesia Post Op Note Date & Time Oct 01, 2017 at 09:14 Vital Signs Pain Intensity: 10.0 Vital Signs Past 12 Hours Date Time Temp Pulse Resp B/P (MAP) Pulse Ox O2 Delivery O2 Flow Rate FiO2 10/01/17 08:30 37.0 78 20 115/63 99 10/01/17 08:15 37.3 84 20 114/66 98 2.0 10/01/17 08:00 37.3 67 18 106/59 99 2.0 10/01/17 07:35 37.5 73 20 108/66 10/01/17 06:58 36.6 79 18 109/53 (71) 97 Humidified Oxygen 2.0 10/01/17 05:30 37.5 80 18 109/86 (94) 99 Nasal Cannula 2.0 09/30/17 23:40 Nasal Cannula 2.0 Humidified Oxygen 09/30/17 23:40 Nasal Cannula 2.0 Humidified Oxygen 09/30/17 23:20 36.8 77 18 119/63 (81) 99 Nasal Cannula 1.0 09/30/17 21:27 82 112/60 (77) Notes Mental Status: alert / awake / arousable, participated in evaluation Pt Amnestic to Procedure: Yes Nausea / Vomiting: adequately controlled Pain: adequately controlled Airway Patency, RR, SpO2: stable & adequate BP & HR: stable & adequate Hydration State: stable & adequate Anesthetic Complications: no major complications apparent
[2017-10-01] MEDS: INSULIN GLARGINE SOLOSTAR 100 UNITS/ML 3 ML PEN SC SCH ×2 (09:20→21:38)
[2017-10-01] MEDS: INSULIN ASPART 100 UNITS/ML 3 ML PEN SC SCH ×4 (09:21→21:39)
[2017-10-01] MEDS: OXYCODONE HCL 40 MG TABCR (OXYCONTIN) PO SCH ×2 (09:30→21:37)
[2017-10-01] MEDS ORDERED: NURSING VERBAL MED ORDER ONE ×5 (11:00→22:30)
[2017-10-01] MEDS ORDERED: BACLOFEN 10 MG TAB PO ONE (11:39)
[2017-10-01] MEDS: VENLAFAXINE HCL XR 37.5 MG CAPXR PO SCH (12:05)
[2017-10-01] MEDS ORDERED: COUGH DROP (SUGAR FREE) LOZ 24 LOZ/1 BOX LOZ PRN (12:15)
--- NOTE | 2017-10-01 13:59 | Hospitalist Progress Note ---
Hospitalist Progress Note Date of Service Oct 01, 2017 ~ 1000 (Melani Gordon ., ZACH) Subjective Patient seen and examined. Reporting back pain and right outer leg pain. Denies chest pain shortness of breath. No lightheadedness or dizziness. Denies abdominal pain or nausea. [place] removed this a.m., patient has not voided yet. (Melani Gordon ., ZACH) Objective Vital Signs Date Time Temp Pulse Resp B/P (MAP) Pulse Ox O2 Delivery O2 Flow Rate FiO2 10/01/17 13:23 37.2 79 20 96/60 95 10/01/17 11:15 37.2 71 20 106/59 98 10/01/17 11:00 37.1 76 20 121/66 96 10/01/17 10:45 37.1 61 20 95/50 96 10/01/17 10:31 36.9 67 20 93/52 94 2.0 10/01/17 10:22 37.1 71 20 101/60 93 10/01/17 10:15 37.1 71 20 101/60 93 10/01/17 09:15 36.7 81 20 116/67 97 10/01/17 08:45 37.0 78 20 116/67 97 2.0 10/01/17 08:30 37.0 78 20 115/63 99 10/01/17 08:15 37.3 84 20 114/66 98 2.0 10/01/17 08:00 37.3 67 18 106/59 99 2.0 10/01/17 07:35 37.5 73 20 108/66 10/01/17 07:30 Nasal Cannula 2.0 Humidified Oxygen 10/01/17 06:58 36.6 79 18 109/53 (71) 97 Humidified Oxygen 2.0 10/01/17 05:30 37.5 80 18 109/86 (94) 99 Nasal Cannula 2.0 09/30/17 23:40 Nasal Cannula 2.0 Humidified Oxygen 09/30/17 23:40 Nasal Cannula 2.0 Humidified Oxygen 09/30/17 23:20 36.8 77 18 119/63 (81) 99 Nasal Cannula 1.0 09/30/17 21:27 82 112/60 (77) 09/30/17 19:52 36.5 83 20 116/71 (86) 99 Room Air 09/30/17 17:04 36.4 75 20 122/67 (85) 100 Nasal Cannula 1.0 09/30/17 16:00 Nasal Cannula 2.0 Humidified Oxygen 09/30/17 15:28 36.5 73 20 133/67 (89) 99 Nasal Cannula 2.0 09/30/17 14:51 73 18 127/70 (89) 100 Humidified Oxygen 1.0 09/30/17 14:19 75 18 131/67 (88) 100 Humidified Oxygen 1.0 09/30/17 13:56 100 Nasal Cannula 2.0 Humidified Oxygen 09/30/17 13:55 36.4 72 16 135/74 (94) 100 Nasal Cannula 2.0 Humidified Oxygen (Melani Gordon, SCIENTIFIC AFFAIRS MANAGER) Physical Exam General Appearance: no apparent distress Respiratory/Chest: lungs clear, normal breath sounds, no respiratory distress Cardiovascular: regular rate, rhythm, + pertinent finding (Trace edema BLE) Abdomen: normal bowel sounds, non tender, soft Extremities: + pertinent finding (S/P back surgery; chronic left foot drop noted) Neurologic/Psychiatric: no motor/sensory deficits, alert, oriented x 3 (Melani Gordon, ZACH) Laboratory Results Item Value Date Time White Blood Count 9.52 K/uL 10/01/17 0557 Hemoglobin 7.2 g/dL L 10/01/17 05 Hematocrit 21.0 % L 10/01/17 05 Platelet Count 178 K/uL 10/01/17 0557 Sodium Level 134 mmol/L L 10/01/17 0557 Potassium Level 4.4 mmol/L 10/01/17 0557 Blood Urea Nitrogen 21 mg/dl H 10/01/17 0557 Creatinine 1.19 mg/dl 10/01/17 0557 (Melani Gordon ., SCIENTIFIC AFFAIRS MANAGER) Assessment and Plan LUMBAR SPINAL STENOSIS WITH NEUROGENIC CLAUDICATION AND WEAKNESS S/P L2-S1 DECOMPRESSION AND FUSION - POD#1 - activity and wound care orders as per ortho - pain control with bowel regimen - PT/OT EXPECTED ACUTE BLOOD LOSS ANEMIA -Hemoglobin 7.2 this a.m., ordered 2 units PRBC by spine orthopedics -EBL from surgery 1500 cc, PATRICIA output 560 cc overnight -Recheck hemoglobin this afternoon after PRBCs UTI (POA) -Outpatient urine culture positive for E. coli on 09/24/17 -Was given Bactrim as an outpatient and started on ceftriaxone inpatient -day #5of ceftriaxone, DC after today's dose DM II -Hgb A1c 5.5 09/2017 -Hold oral diabetic meds -On NovoLog and Lantus per protocol while hospitalized -Monitor for hyperglycemia postoperatively secondary to steroids HTN -BP controlled, continue atenolol and felodipine -Lasix and valsartan held in light of surgery -will continue hold due to borderline BPs and hypovolemia from blood loss CKD III - baseline creat runs in the mid ones - creat noted to be 1.1 today - continue to monitor, avoid nephrotoxic agents when able ANEMIA OF CKD -Baseline hemoglobin 10-11 CHRONIC HYPONATREMIA -Baseline sodium in the low 130s -Likely due to diuretics -Diuretics on hold, receiving IVF ASTHMA -No signs of acute exacerbation, continue home inhalers ANXIETY AND DEPRESSION -Stable, continue Effexor DYSLIPIDEMIA -Continue Zetia GERD -continue PPI DVT PROPHYLAXIS -Received heparin preoperatively now on teds/SCDs as per spine orthopedics (Mleani Gordon ., ZACH) Pt was seen and examined . Agreed with Melani SERRANO exam, assessment and Plan. S/ P day 1 lumbar decompression and fusion surgery done by Dr Goss. She continue to have alot of pain. Denies any chest pain, palpitation and SOB. Her hgb dropped to 7.2. She is getting 2 units PRBC now. Continue pain control. Monitor H/H. Will transfuse if hgb drops below 8. Continue incentive spirometry. PT/OT. Fall precaution. Continue monitor closely. MD Imani (Carina Diallo M.D.)
[2017-10-01 15:03] LABS: HEMATOCRIT 28.1 % (37-47); HEMOGLOBIN 9.5 g/dL (12.0-16.0)
[2017-10-01] MEDS: CEFTRIAXONE SOD INJ 1 GM in DEXTROSE 5% ADD-VANTAGE 50ML 50 ML IV SCH (15:32)
--- NOTE | 2017-10-01 16:44 | Progress Note ---
Progress Note Date of Service Oct 01, 2017. Progress Note Patient's back pain is controlled. She denies any significant leg pain. Vital signs are stable with just a touch of hypotension. She is however alert and oriented and appropriate with all questioning. Neurologically she is intact. Assessment status post lumbar decompression fusion per plan at this time her hemoglobin was 7.2 this a.m. and 2 units of packed red blood cells will be transfused. We will hold PT today and hopefully initiate tomorrow.
[2017-10-01] MEDS: DOCUSATE SODIUM/SENNA 50/8.6MG TAB PO SCH (21:36)
[2017-10-01] MEDS: BACLOFEN 10 MG TAB PO SCH (21:37)
[2017-10-02] VITALS (7 sets, daily range): BP systolic 119–152; BP diastolic 67–74; PULSE 62–77; TEMP 36.1–36.8; O2SAT 98–100
[2017-10-02] MEDS ORDERED: OXYCODONE/ACETAMINOPHEN 5-325 TAB PO PRN (05:45)
[2017-10-02 06:05] LABS: BASO % 0.1 %; BASO ABS # 0.01 K/uL (0-0.2); EOS % 0.9 %; EOS ABS # 0.07 K/uL (0-0.5); HEMATOCRIT 27.6 % (37-47); HEMOGLOBIN 9.5 g/dL (12.0-16.0); IG# 0.03 K/uL (0.00-0.02); LYMPH % 18.5 %; LYMPH ABS # 1.48 K/uL (1.2-3.4); MEAN CELL VOLUME 85.4 fL (80-100); MEAN CORPUSCULAR HEMOGLOBIN 29.4 pg (25-34); MEAN CORPUSCULAR HGB CONC 34.4 g/dl (32-36); MEAN PLATELET VOLUME 9.7 fL (7.4-10.4); MONO ABS # 0.88 K/uL (0.11-0.59); NEUT % 69.1 %; NEUT ABS # 5.54 K/uL (1.4-6.5); PLATELET COUNT 164 K/uL (130-400); RED CELL DISTRIBUTION WIDTH CV 14.9 % (11.5-14.5); RED CELL DISTRIBUTION WIDTH SD 46.3 fL (36.4-46.3); WHITE BLOOD COUNT 8.01 K/uL (4.8-10.8)
[2017-10-02] MEDS: POLYETHYLENE (MIRALAX) 17 GM PACK PO SCH ×3 (06:06→17:42)
[2017-10-02 06:39] LABS: ALBUMIN 2.6 gm/dl (3.4-5.0); CALCIUM 8.1 mg/dl (8.5-10.1); CREATININE 1.1 mg/dl (0.60-1.20); POTASSIUM 4.3 mmol/L (3.5-5.1); TOTAL PROTEIN 5.3 gm/dl (6.4-8.2)
[2017-10-02] MEDS: INSULIN ASPART 100 UNITS/ML 3 ML PEN SC SCH ×4 (08:00→21:20)
--- NOTE | 2017-10-02 08:30 | Progress Note ---
Progress Note Date of Service Oct 02, 2017. Progress Note Patient's complaining mostly of back pain struggled last evening with oversedation. She did receive a dose of Narcan this morning. At this time she is stable. She is neurologically intact. She is alert and oriented with questioning. Assessment status post multilevel lumbar decompression fusion per plan at this time will discontinue IV narcotics. Will maintain her current dose of OxyContin at this time however we may need to decrease this as the days progress. She will often obviously be a candidate for rehab versus fdc upon discharge.
[2017-10-02] MEDS: LORATADINE 10 MG TAB PO SCH (09:00)
[2017-10-02] MEDS: TRIAMCINOLONE ACET 0.1% CR 15 GM TUBE EXT SCH ×2 (09:00→21:15)
[2017-10-02] MEDS: ASPIRIN 81 MG ECTAB PO SCH (09:00)
[2017-10-02] MEDS: BACLOFEN 10 MG TAB PO SCH ×2 (09:00→21:18)
[2017-10-02] MEDS: POTASSIUM CHLORIDE 10 MEQ TABCR PO SCH ×2 (09:00→21:16)
[2017-10-02] MEDS: EZETIMIBE 10MG TAB PO SCH (09:00)
[2017-10-02] MEDS: GABAPENTIN 300 MG CAP PO SCH ×2 (09:00→21:16)
[2017-10-02] MEDS: VENLAFAXINE HCL XR 37.5 MG CAPXR PO SCH (09:00)
[2017-10-02] MEDS: PANTOprazole SOD 40 MG TAB PO SCH ×2 (09:00→21:18)
[2017-10-02] MEDS: INSULIN GLARGINE SOLOSTAR 100 UNITS/ML 3 ML PEN SC SCH ×2 (09:00→21:21)
[2017-10-02] MEDS: FLUTICASONE/SALMETEROL 250/50 (ADVAIR) 14 PUFF/1 INHALER INH SCH ×2 (09:00→21:16)
[2017-10-02] MEDS: FLUTICASONE PROPIONATE NA SPR 16 GM BTL SCH (09:00)
[2017-10-02] MEDS: FELODIPINE 5 MG TABCR PO SCH (09:00)
[2017-10-02] MEDS: OXYCODONE HCL 40 MG TABCR (OXYCONTIN) PO SCH (09:00)
--- NOTE | 2017-10-02 10:43 | Hospitalist Progress Note ---
Hospitalist Progress Note Date of Service Oct 02, 2017. (Melani Gordon .ZACH) Subjective Patient seen and examined. Increased lethargy this morning. Received Narcan at 0545 with improvement in mentation however now is lethargic again. Patient awakens to loud verbal stimuli and gentle sternal rub however falls back to sleep quickly. She is appropriate whenever she is awake. Patient reports her pain is well controlled. Denies abdominal pain and nausea. No chest pain or shortness of breath. (Melani Gordon CRNP) Objective Vital Signs Date Time Temp Pulse Resp B/P (MAP) Pulse Ox O2 Delivery O2 Flow Rate FiO2 10/02/17 07:30 36.8 63 14 119/71 (87) 98 Nasal Cannula 1.5 10/02/17 05:30 36.2 77 15 136/71 (92) 99 Nasal Cannula 2.0 10/02/17 00:30 Nasal Cannula 2.0 Humidified Oxygen 10/02/17 00:06 36.1 65 19 126/67 (86) 100 Nasal Cannula 2.0 10/01/17 21:47 60 102/59 (73) 10/01/17 16:00 Room Air 10/01/17 15:00 37.0 71 18 119/68 (85) 96 Room Air 10/01/17 13:23 37.2 79 20 96/60 95 10/01/17 11:15 37.2 71 20 106/59 98 10/01/17 11:00 37.1 76 20 121/66 96 10/01/17 10:45 37.1 61 20 95/50 96 (Melani Gordon CRNP) Physical Exam General Appearance: + mild distress (Lethargic) Respiratory/Chest: lungs clear, normal breath sounds, no respiratory distress Cardiovascular: regular rate, rhythm, no edema Extremities: + pertinent finding (S/P back surgery, drain in place draining bloody drainage; chronic left foot drop noted) Neurologic/Psychiatric: + pertinent finding (Lethargic, awakens to loud verbal stimuli and gentle sternal rub, is appropriate while awake however falls back to sleep quickly) (Melani Gordon CRNP) Laboratory Results Item Value Date Time White Blood Count 8.01 K/uL 10/02/17 0555 Hemoglobin 9.5 g/dL L 10/02/17 0555 Hematocrit 27.6 % L 10/02/17 0555 Platelet Count 164 K/uL 10/02/17 0555 Sodium Level 133 mmol/L L 10/02/17 0555 Potassium Level 4.3 mmol/L 10/02/17 0555 Blood Urea Nitrogen 17 mg/dl 10/02/17 0555 Creatinine 1.10 mg/dl 10/02/17 0555 (Melani Gordon .ZACH) Assessment and Plan LUMBAR SPINAL STENOSIS WITH NEUROGENIC CLAUDICATION AND WEAKNESS S/P L2-S1 DECOMPRESSION AND FUSION - POD#0 - activity and wound care orders as per ortho - pain control with bowel regimen - PT/OT LETHARGY -Likely due to polypharmacy -Vital signs stable -Received Narcan at 0545 with improvement in symptoms however is now lethargic again -We will check ABG, consider another dose of Narcan EXPECTED ACUTE BLOOD LOSS ANEMIA -Received 2 units PRBC on 10/01 for hemoglobin 7.2 -Hemoglobin 9.5 today -EBL from surgery 1500 cc, PATRICIA output 1090 cc cumulative UTI (POA) -Outpatient urine culture positive for E. coli on 09/24/17 -Was given Bactrim as an outpatient and started on ceftriaxone inpatient -Completed 5 doses ceftriaxone DM II -Hgb A1c 5.5 09/2017 -Hold oral diabetic meds -On NovoLog and Lantus per protocol while hospitalized -Monitor for hyperglycemia postoperatively secondary to steroids HTN -BP controlled, continue atenolol and felodipine -Lasix and valsartan held in light of surgery -will continue hold due to borderline BPs and hypovolemia from blood loss CKD III - baseline creat runs in the mid ones - creat noted to be 1.1 today - continue to monitor, avoid nephrotoxic agents when able ANEMIA OF CKD -Baseline hemoglobin 10-11 CHRONIC HYPONATREMIA -Baseline sodium in the low 130s -Likely due to diuretics -Diuretics on hold as above ASTHMA -continue home inhalers -Checking ABG due to lethargy ANXIETY AND DEPRESSION -Stable, continue Effexor DYSLIPIDEMIA -Continue Zetia GERD -continue PPI DVT PROPHYLAXIS -Received heparin preoperatively now on teds/SCDs as per spine orthopedics (Melani Gordon .ZACH) Pt was seen and examined . Agreed with Melani SERRANO exam, assessment and Plan. S/ P day 2 lumbar decompression and fusion surgery done by Dr Goss. This morning Pt was very lethargy and drowsy. She had narcan early this morning because she was barely able to response. By the time I saw her she was able to stay awake. No additional narcan was given. She said that she continues to have alot of pain. Denies any chest pain, palpitation and SOB. Her hgb improved to 9.5 after receiving 2 units PRBC. Will hold narcotic for the pain for now. Continue pain control with toradol. Monitor H/H. Will transfuse if hgb drops below 8. Continue incentive spirometry. PT/OT. Fall precaution. Continue monitor closely. MD Imani (Carina Diallo M.D.)
[2017-10-02] MEDS: KETOROLAC TROMETHAMINE 15 MG/ML VIAL IV PRN ×2 (12:51→18:56)
[2017-10-02] MEDS: LIDODERM (LIDOCAINE) PATCH 5% TD SCH (12:59)
[2017-10-02] MEDS: ACETAMINOPHEN 500 MG TAB PO PRN (16:31)
[2017-10-02] MEDS: hydrOXYzine HCL 25 MG TAB PO PRN (20:08)
[2017-10-02] MEDS: DOCUSATE SODIUM/SENNA 50/8.6MG TAB PO SCH (21:17)
[2017-10-03] MEDS: KETOROLAC TROMETHAMINE 15 MG/ML VIAL IV PRN ×3 (04:24→20:47)
[2017-10-03] MEDS: POLYETHYLENE (MIRALAX) 17 GM PACK PO SCH ×4 (06:15→18:00)
[2017-10-03] MEDS: ACETAMINOPHEN 500 MG TAB PO PRN (06:18)
[2017-10-03 07:35] VITALS: BP 122/70; PULSE 52; TEMP 37; O2SAT 97
[2017-10-03] MEDS: INSULIN GLARGINE SOLOSTAR 100 UNITS/ML 3 ML PEN SC SCH ×2 (09:00→22:07)
[2017-10-03] MEDS: LIDODERM (LIDOCAINE) PATCH 5% TD SCH (09:07)
[2017-10-03] MEDS: BACLOFEN 10 MG TAB PO SCH ×2 (09:09→22:00)
[2017-10-03] MEDS: INSULIN ASPART 100 UNITS/ML 3 ML PEN SC SCH ×4 (09:15→21:00)
[2017-10-03] MEDS: FLUTICASONE PROPIONATE NA SPR 16 GM BTL SCH (09:16)
[2017-10-03] MEDS: FLUTICASONE/SALMETEROL 250/50 (ADVAIR) 14 PUFF/1 INHALER INH SCH ×2 (09:16→22:03)
[2017-10-03] MEDS: PANTOprazole SOD 40 MG TAB PO SCH ×2 (09:23→22:02)
[2017-10-03] MEDS: LORATADINE 10 MG TAB PO SCH (09:23)
[2017-10-03] MEDS: FELODIPINE 5 MG TABCR PO SCH (09:24)
[2017-10-03] MEDS: GABAPENTIN 300 MG CAP PO SCH ×2 (09:24→22:02)
[2017-10-03] MEDS: ASPIRIN 81 MG ECTAB PO SCH (09:26)
[2017-10-03] MEDS: VENLAFAXINE HCL XR 37.5 MG CAPXR PO SCH (09:26)
[2017-10-03] MEDS: POTASSIUM CHLORIDE 10 MEQ TABCR PO SCH ×2 (09:26→22:03)
[2017-10-03] MEDS: EZETIMIBE 10MG TAB PO SCH (09:27)
[2017-10-03] MEDS: TRIAMCINOLONE ACET 0.1% CR 15 GM TUBE EXT SCH ×2 (09:28→21:00)
[2017-10-03 10:00] VITALS: O2SAT 97
--- NOTE | 2017-10-03 13:43 | Progress Note ---
Progress Note Date of Service Oct 03, 2017. Progress Note Patient's complaining some back pain left anterior thigh pain. The pain does improve with ambulation. She is in the chair. Vital signs are stable. On exam she is good strength testing bilateral lower extremities. Sensory is symmetric and intact. Assessment status post multilevel lumbar decompression fusion per plan at this time will continue to encourage physical therapy monitor her PATRICIA output anticipate discharge to correction Friday or Friday.
--- NOTE | 2017-10-03 13:55 | Progress Note ---
Medicine Progress Note Date & Time of Visit: Oct 03, 2017 at 13:36. Subjective Pt was seen and examined Sitting in chair with no distress eating lunch Patient is more awake today She said that she is having pain in her left leg She did not get any narcotic since yesterday morning Denies any chest pain, palpitation, dizziness and SOB Objective Last 8 Hrs Date Time Temp Pulse Resp B/P (MAP) Pulse Ox O2 Delivery O2 Flow Rate FiO2 10/03/17 10:00 97 Room Air 10/03/17 09:15 Room Air 10/03/17 07:35 37.0 52 14 122/70 (87) 97 Room Air Physical Exam: General- No acute distress Head- atraumatic Eyes- PERRL, EOMI ENT- oropharynx clear Neck- no JVD Lungs- No wheezing Heart- regular rhythm Abdomen- normal bowel sounds, soft Extremities- no calf tenderness Neuro- alert, oriented, PERRL Skin- warm & dry Laboratory Results: Last 24 Hours Test 10/02/17 17:14 10/02/17 20:26 10/03/17 08:12 10/03/17 12:01 Bedside Glucose 134 mg/dl 187 mg/dl 82 mg/dl 110 mg/dl Assessment & Plan LUMBAR SPINAL STENOSIS WITH NEUROGENIC CLAUDICATION AND WEAKNESS S/P day#3 L2-S1 DECOMPRESSION AND FUSION by Dr. Goss Continue pain control Will add low dose narco and hold if pt becomes drowsy or lethargy Continue Toradol prn PT/OT Minimal drainage for the PATRICIA drain Fall precaution LETHARGY/DROWSINESS Due to narcotic Awake today Will resume opioid at a low dose for the pain ACUTE BLOOD LOSS ANEMIA Received 2 units PRBC on 10/01 for hemoglobin 7.2 Hemoglobin 9.5 yesterday Stable Monitor CBC UTI (POA) Outpatient urine culture positive for E. coli on 09/24/17 Was given Bactrim as an outpatient and started on ceftriaxone inpatient Completed 5 doses ceftriaxone DM II Hgb A1c 5.5 on 09/2017 Hold oral diabetic meds On NovoLog and Lantus per protocol while hospitalized Monitor for hyperglycemia postoperatively secondary to steroids HTN BP stable Continue atenolol and felodipine Will resume valsartan in am Continue to hold Lasix CKD III Baseline creat runs in the mid ones Creatine stable Avoid nephrotoxic agents Continue monitor BMP ANEMIA OF CKD Baseline hemoglobin 10-11 Hgb 9.5 yesterday Monitor CBC CHRONIC HYPONATREMIA Baseline sodium in the low 130s Possible related to diuretics Na improved to 133 Monitor BMP ASTHMA Asymptomatic Stable ANXIETY AND DEPRESSION Stable Continue Effexor DYSLIPIDEMIA Continue Zetia GERD continue PPI DVT PROPHYLAXIS As per Ortho CODE STATUS FULL CODE Current Inpatient Medications: Current Inpatient Medications Medications (Trade) Dose Ordered Sig/Rayshawn Route Start Time Stop Time Status Last Admin Dose Admin Glucose (Glucose 40% Gel) 15-30 GRAMS 15 GRAMS... UD PRN PO 09/27/17 15:00 10/27/17 14:59 Glucose (Glucose Chew Tab) 4-8 Tablets 4 Tabl... UD PRN PO 09/27/17 15:00 10/27/17 14:59 Dextrose (Dextrose 50% 50ML Syringe) 25-50ML 25ML FOR ... UD PRN IV 09/27/17 15:00 10/27/17 14:59 Glucagon (Glucagon Inj) 1 mg UD PRN SQ 09/27/17 15:00 10/27/17 14:59 Carbohydrates (Carbohydrates For Hypoglycemia) 15-30 GRAMS 15 grams if BSG 54-69... UD PRN PO 09/27/17 15:00 10/27/17 14:59 Levalbuterol (Xopenex 0.63 Mg/ 3 Ml Neb) 0.63 mg Q6R PRN INH 09/27/17 16:00 10/27/17 15:59 Aspirin (Ecotrin Tab) 81 mg DAILY PO 09/28/17 09:00 10/28/17 08:59 10/03/17 09:26 81 MG Atenolol (Tenormin Tab) 25 mg BID PO 09/27/17 21:00 10/27/17 20:59 10/02/17 21:17 25 MG Baclofen (Lioresal Tab) 10 mg TID PRN PO 09/27/17 16:00 10/27/17 15:59 Future Hold 10/01/17 17:03 10 MG EZETIMIBE (Zetia Tab) 10 mg DAILY PO 09/28/17 09:00 10/28/17 08:59 10/03/17 09:27 10 MG Felodipine (Plendil Tabcr) 5 mg DAILY PO 09/28/17 09:00 10/28/17 08:59 10/03/17 09:24 5 MG Furosemide (Lasix Tab) 80 mg DAILY PO 09/28/17 09:00 10/28/17 08:59 Future Hold 09/28/17 08:46 80 MG Gabapentin (Neurontin Cap) 300 mg BID PO 09/27/17 21:00 10/27/17 20:59 10/03/17 09:24 300 MG Loratadine (Claritin Tab) 10 mg DAILY PO 09/28/17 09:00 10/28/17 08:59 10/03/17 09:23 10 MG Oxycodone HCl (Oxycontin Tab) 40 mg Q12 PO 09/27/17 21:00 10/11/17 20:59 Future Hold 10/01/17 21:37 40 MG Potassium Chloride (Klor-Con M10) 10 meq BID PO 09/27/17 21:00 10/27/17 20:59 10/03/17 09:26 10 MEQ Triamcinolone Acetonide (Kenalog 0.1% Cream) 1 appln BID EXT 09/27/17 21:00 10/27/17 20:59 10/03/17 09:28 1 APPLN Valsartan (Diovan Tab) 320 mg DAILY PO 09/28/17 09:00 10/28/17 08:59 Future Hold 09/28/17 08:45 320 MG Venlafaxine HCl (effeXOR EXTENDED REL CAP) 37.5 mg DAILY PO 09/28/17 09:00 10/28/17 08:59 10/03/17 09:26 37.5 MG Pantoprazole Sodium (Protonix Tab) 40 mg BID PO 09/27/17 21:00 10/27/17 20:59 10/03/17 09:23 40 MG Polyethylene (Miralax Powder Packet) 17 gm DAILY PRN PO 09/27/17 16:15 10/27/17 16:14 Fluticasone Propionate (Flonase Nasal [place]) 2 sprays DAILY NA 09/28/17 09:00 10/28/17 08:59 10/03/17 09:16 2 SPRAYS Salmeterol Xinafoate/ Fluticasone (Advair Diskus 250/50 Inh) 1 puff BID INH 09/27/17 21:00 10/27/17 20:59 10/03/17 09:16 1 PUFF Heparin Sodium (Porcine) (Heparin Sq 5000 Unit/0.5ml) 5,000 unit Q8H SQ 09/27/17 22:00 10/27/17 21:59 Future Hold 09/29/17 21:39 5,000 UNIT Insulin Aspart (novoLOG ASPART) SLIDING SCALE If C... ACHS SC 09/29/17 08:00 10/29/17 05:59 10/03/17 12:47 3 UNITS Promethazine HCl 12.5 mg/Sodium Chloride 50.5 ml @ 202 mls/hr Q6H PRN IV 09/30/17 11:30 10/30/17 11:29 Ondansetron HCl (Zofran Inj) 4 mg Q6H PRN IV 09/30/17 11:30 10/30/17 11:29 Metoclopramide HCl (Reglan Inj) 10 mg Q6H PRN IV 09/30/17 11:30 10/30/17 11:29 Pneumococcal Polysaccharide Vaccine 1 ea PRN PRN N/A 09/30/17 11:30 10/30/17 11:29 Influenza Virus Vacc Triv Types A&B 1 ea PRN PRN N/A 09/30/17 11:30 10/30/17 11:29 Polyethylene (Miralax Powder Packet) 17 gm Q6 PO 10/02/17 06:00 11/01/17 05:59 10/03/17 06:15 17 GM Bisacodyl (Dulcolax Supp) 10 mg DAILY PRN [place] 09/30/17 11:30 10/30/17 11:29 Magnesium Hydroxide (Milk Of Magnesia Susp) 30 ml DAILY PRN PO 09/30/17 11:30 10/30/17 11:29 Acetaminophen (Tylenol Tab) 1,000 mg Q8H PRN PO 09/30/17 11:30 10/30/17 11:29 10/03/17 06:18 1,000 MG Acetaminophen 100 ml @ 400 mls/hr Q8H PRN IV 09/30/17 11:30 10/30/17 11:29 10/02/17 06:06 400 MLS/HR Naloxone HCl (Narcan Inj) 0.1 mg Q5M PRN IV 09/30/17 11:30 10/30/17 11:29 10/02/17 05:42 0.1 MG Senna/Docusate Sodium (Senokot S Tab) 2 tab HS PO 09/30/17 21:00 10/30/17 20:59 10/02/17 21:17 2 TAB Sodium Biphosphate/ Sodium Phosphate (Fleet Enema) 132 ml ONE PRN [place] 09/30/17 11:30 10/30/17 11:29 Hydroxyzine HCl (Vistaril Tab) 25 mg Q8H PRN PO 09/30/17 11:30 10/30/17 11:29 10/02/17 20:08 25 MG Al Hydroxide/Mg Hydroxide (Maalox Susp) 30 ml Q6H PRN PO 09/30/17 11:30 10/30/17 11:29 Famotidine (Pepcid Tab) 20 mg Q12 PRN PO 09/30/17 11:30 10/30/17 11:29 Insulin Glargine (Lantus Solostar Pen) blood sugar < 100-h... BID SC 09/30/17 21:00 10/27/17 20:59 10/02/17 21:21 13 UNITS Baclofen (Lioresal Tab) 5 mg BID PO 10/01/17 21:00 10/31/17 20:59 10/03/17 09:09 5 MG Menthol (Nice Oseas) 1 oseas PRN PRN OSEAS 10/01/17 12:15 10/31/17 12:14 Oxycodone/ Acetaminophen (Percocet 5-325mg Tab) 1 tab Q6H PRN PO 10/02/17 05:45 10/16/17 05:44 Future Hold Ketorolac Tromethamine (Toradol Inj) 15 mg Q6H PRN IV 10/02/17 08:30 10/07/17 08:29 10/03/17 13:06 15 MG Lidocaine (Lidoderm Patch 5%) 1 patch QAM TD 10/02/17 12:30 11/01/17 12:29 10/03/17 09:07 1 PATCH Miscellaneous (Remove Lidoderm Patch) 1 ea DAILY@21 N/A 10/02/17 21:00 11/01/17 20:59 10/02/17 21:16 1 EA
[2017-10-03] MEDS: OXYCODONE/ACETAMINOPHEN 5-325 TAB PO PRN ×2 (14:14→22:45)
[2017-10-03 15:05] VITALS: BP 120/57; PULSE 76; TEMP 36.7; O2SAT 97
[2017-10-03] MEDS ORDERED: NURSING VERBAL MED ORDER ONE (20:00)
[2017-10-03] MEDS: DOCUSATE SODIUM/SENNA 50/8.6MG TAB PO SCH (22:02)
[2017-10-03 23:30] VITALS: BP 137/73; PULSE 65; TEMP 36.4; O2SAT 96
[2017-10-04] MEDS: KETOROLAC TROMETHAMINE 15 MG/ML VIAL IV PRN (06:34)
[2017-10-04 07:30] VITALS: BP 156/76; PULSE 63; TEMP 36.8; O2SAT 98
[2017-10-04 07:32] LABS: HEMATOCRIT 24.9 % (37-47); HEMOGLOBIN 8.6 g/dL (12.0-16.0); MEAN CORPUSCULAR HEMOGLOBIN 29.4 pg (25-34); MEAN CORPUSCULAR HGB CONC 34.5 g/dl (32-36); PLATELET COUNT 180 K/uL (130-400); RED CELL DISTRIBUTION WIDTH CV 14.4 % (11.5-14.5); RED CELL DISTRIBUTION WIDTH SD 44.3 fL (36.4-46.3); WHITE BLOOD COUNT 5.93 K/uL (4.8-10.8)
--- NOTE | 2017-10-04 09:24 | Progress Note ---
Progress Note Date of Service Oct 04, 2017. Progress Note Patient's back pain is controlled. She still complains of intermittent left knee pain. This is somewhat improved with ambulation. She is only been walking in her room. On exam she is in a chair at the bedside. She is alert and oriented. She is good strength testing bilateral lower extremities. She has some tenderness palpation of the left prepatellar region of her knee. Assessment status post lumbar decompression fusion per plan at this time I will obtain an x-ray left knee will consider discharge Friday or Friday.
[2017-10-04] MEDS: INSULIN ASPART 100 UNITS/ML 3 ML PEN SC SCH ×4 (09:39→21:00)
[2017-10-04] MEDS: INSULIN GLARGINE SOLOSTAR 100 UNITS/ML 3 ML PEN SC SCH ×2 (09:40→22:24)
[2017-10-04] MEDS: FLUTICASONE/SALMETEROL 250/50 (ADVAIR) 14 PUFF/1 INHALER INH SCH ×2 (09:41→22:10)
[2017-10-04] MEDS: FLUTICASONE PROPIONATE NA SPR 16 GM BTL SCH (09:41)
[2017-10-04] MEDS: EZETIMIBE 10MG TAB PO SCH (09:43)
[2017-10-04] MEDS: OXYCODONE/ACETAMINOPHEN 5-325 TAB PO PRN ×3 (09:44→22:28)
[2017-10-04] MEDS: ASPIRIN 81 MG ECTAB PO SCH (09:44)
[2017-10-04] MEDS: BACLOFEN 10 MG TAB PO SCH ×2 (09:45→22:11)
[2017-10-04] MEDS: FELODIPINE 5 MG TABCR PO SCH (09:45)
[2017-10-04] MEDS: VENLAFAXINE HCL XR 37.5 MG CAPXR PO SCH (09:45)
[2017-10-04] MEDS: PANTOprazole SOD 40 MG TAB PO SCH ×2 (09:46→22:11)
[2017-10-04] MEDS: LORATADINE 10 MG TAB PO SCH (09:46)
[2017-10-04] MEDS: GABAPENTIN 300 MG CAP PO SCH ×2 (09:46→22:14)
[2017-10-04] MEDS: LIDODERM (LIDOCAINE) PATCH 5% TD SCH (09:47)
[2017-10-04] MEDS: POTASSIUM CHLORIDE 10 MEQ TABCR PO SCH ×2 (09:47→22:13)
--- NOTE | 2017-10-04 10:48 | DIAGNOSTIC IMAGING REPORT ---
L KNEE 3 VIEWS CLINICAL HISTORY: 77 years-old Female presenting with pain. TECHNIQUE: Frontal, lateral, and sunrise views of the left knee were obtained. COMPARISON: None. FINDINGS: There has been postsurgical changes of total left knee arthroplasty with patellar resurfacing. No malalignment. No periprosthetic fracture allowing for suspected osteopenia. No abnormal lucency subjacent to the arthroplasty components. Evidence of heterotopic ossification and/or osteophytosis at multiple sites including the quadriceps tendon. Atherosclerosis. No gross evidence of a knee joint effusion. IMPRESSION: 1. Expected appearance of the total left knee arthroplasty with patellar resurfacing. 2. Allowing for osteopenia, no evidence of acute osseous injury. Electronically signed by: Frandy Manuel M.D. 10/04/2017 10:47 AM Dictated Date/Time: 10/04/2017 10:41 AM
[2017-10-04] MEDS: TRIAMCINOLONE ACET 0.1% CR 15 GM TUBE EXT SCH ×2 (13:57→22:09)
--- NOTE | 2017-10-04 15:29 | Progress Note ---
Medicine Progress Note Date & Time of Visit: Oct 04, 2017 at 15:20. Subjective Pt was seen and examined Sitting in chair with no distress eating lunch Pt said that continue to have pain in her left knee She said that the pain med provides some relief She has been more alert and awake She participated yesterday with therapist Denies any chest pain, palpitation, dizziness and SOB Objective Last 8 Hrs Date Time Temp Pulse Resp B/P (MAP) Pulse Ox O2 Delivery O2 Flow Rate FiO2 10/04/17 08:00 Room Air 10/04/17 07:30 36.8 63 16 156/76 (102) 98 Room Air Physical Exam: General- No acute distress Head- atraumatic Eyes- PERRL, EOMI ENT- oropharynx clear Neck- no JVD Lungs- No wheezing Heart- regular rhythm Abdomen- normal bowel sounds, soft Extremities- no calf tenderness Neuro- alert, oriented, PERRL Skin- warm & dry Laboratory Results: Last 24 Hours Test 10/03/17 17:35 10/03/17 20:42 10/04/17 07:10 10/04/17 07:55 Bedside Glucose 114 mg/dl 144 mg/dl 124 mg/dl White Blood Count 5.93 K/uL Red Blood Count 2.93 M/uL Hemoglobin 8.6 g/dL Hematocrit 24.9 % Mean Corpuscular Volume 85.0 fL Mean Corpuscular Hemoglobin 29.4 pg Mean Corpuscular Hemoglobin Concent 34.5 g/dl RDW Standard Deviation 44.3 fL RDW Coefficient of Variation 14.4 % Platelet Count 180 K/uL Mean Platelet Volume 10.0 fL Test 10/04/17 11:38 Bedside Glucose 147 mg/dl Assessment & Plan LUMBAR SPINAL STENOSIS WITH NEUROGENIC CLAUDICATION AND WEAKNESS S/P day#4 L2-S1 DECOMPRESSION AND FUSION by Dr. Goss Continue pain control Tolerated hydrocodone q8h, will changed to q6h Continue Toradol prn PT/OT PATRICIA drain continues to drain Fall precaution LETHARGY/DROWSINESS Due to narcotic Has been more awake and alert Continue hydrocodone prn ACUTE BLOOD LOSS ANEMIA Received 2 units PRBC on 10/01 for hemoglobin 7.2 Hemoglobin 8.6 today Continue monitor h/h and transfuse if hemoglobin drops below 8 Monitor CBC UTI (POA) Outpatient urine culture positive for E. coli on 09/24/17 Was given Bactrim as an outpatient and started on ceftriaxone inpatient Completed 5 doses ceftriaxone DM II Hgb A1c 5.5 on 09/2017 Hold oral diabetic meds On NovoLog and Lantus per protocol while hospitalized Monitor for hyperglycemia postoperatively secondary to steroids HTN BP stable Continue atenolol and felodipine valsartan resume Will resume lasix in am CKD III Baseline creat runs in the mid ones Creatine stable Avoid nephrotoxic agents Continue monitor BMP ANEMIA OF CKD Baseline hemoglobin 10-11 Hgb 8.6 yesterday Monitor CBC CHRONIC HYPONATREMIA Baseline sodium in the low 130s Possible related to diuretics Monitor BMP ASTHMA Asymptomatic Stable ANXIETY AND DEPRESSION Stable Continue Effexor DYSLIPIDEMIA Continue Zetia GERD continue PPI DVT PROPHYLAXIS As per Ortho CODE STATUS FULL CODE Current Inpatient Medications: Current Inpatient Medications Medications (Trade) Dose Ordered Sig/Rayshawn Route Start Time Stop Time Status Last Admin Dose Admin Glucose (Glucose 40% Gel) 15-30 GRAMS 15 GRAMS... UD PRN PO 09/27/17 15:00 10/27/17 14:59 Glucose (Glucose Chew Tab) 4-8 Tablets 4 Tabl... UD PRN PO 09/27/17 15:00 10/27/17 14:59 Dextrose (Dextrose 50% 50ML Syringe) 25-50ML 25ML FOR ... UD PRN IV 09/27/17 15:00 10/27/17 14:59 Glucagon (Glucagon Inj) 1 mg UD PRN SQ 09/27/17 15:00 10/27/17 14:59 Carbohydrates (Carbohydrates For Hypoglycemia) 15-30 GRAMS 15 grams if BSG 54-69... UD PRN PO 09/27/17 15:00 10/27/17 14:59 Levalbuterol (Xopenex 0.63 Mg/ 3 Ml Neb) 0.63 mg Q6R PRN INH 09/27/17 16:00 10/27/17 15:59 Aspirin (Ecotrin Tab) 81 mg DAILY PO 09/28/17 09:00 10/28/17 08:59 10/04/17 09:44 81 MG Atenolol (Tenormin Tab) 25 mg BID PO 09/27/17 21:00 10/27/17 20:59 10/04/17 09:47 25 MG Baclofen (Lioresal Tab) 10 mg TID PRN PO 09/27/17 16:00 10/27/17 15:59 Future Hold 10/01/17 17:03 10 MG EZETIMIBE (Zetia Tab) 10 mg DAILY PO 09/28/17 09:00 10/28/17 08:59 10/04/17 09:43 10 MG Felodipine (Plendil Tabcr) 5 mg DAILY PO 09/28/17 09:00 10/28/17 08:59 10/04/17 09:45 5 MG Furosemide (Lasix Tab) 80 mg DAILY PO 09/28/17 09:00 10/28/17 08:59 Future Hold 09/28/17 08:46 80 MG Gabapentin (Neurontin Cap) 300 mg BID PO 09/27/17 21:00 10/27/17 20:59 10/04/17 09:46 300 MG Loratadine (Claritin Tab) 10 mg DAILY PO 09/28/17 09:00 10/28/17 08:59 10/04/17 09:46 10 MG Oxycodone HCl (Oxycontin Tab) 40 mg Q12 PO 09/27/17 21:00 10/11/17 20:59 Future Hold 10/01/17 21:37 40 MG Potassium Chloride (Klor-Con M10) 10 meq BID PO 09/27/17 21:00 10/27/17 20:59 10/04/17 09:47 10 MEQ Triamcinolone Acetonide (Kenalog 0.1% Cream) 1 appln BID EXT 09/27/17 21:00 10/27/17 20:59 10/04/17 13:57 1 APPLN Valsartan (Diovan Tab) 320 mg DAILY PO 09/28/17 09:00 10/28/17 08:59 Future hold 09/28/17 08:45 320 MG Venlafaxine HCl (effeXOR EXTENDED REL CAP) 37.5 mg DAILY PO 09/28/17 09:00 10/28/17 08:59 10/04/17 09:45 37.5 MG Pantoprazole Sodium (Protonix Tab) 40 mg BID PO 09/27/17 21:00 10/27/17 20:59 10/04/17 09:46 40 MG Polyethylene (Miralax Powder Packet) 17 gm DAILY PRN PO 09/27/17 16:15 10/27/17 16:14 Fluticasone Propionate (Flonase Nasal [place]) 2 sprays DAILY NA 09/28/17 09:00 10/28/17 08:59 10/04/17 09:41 2 SPRAYS Salmeterol Xinafoate/ Fluticasone (Advair Diskus 250/50 Inh) 1 puff BID INH 09/27/17 21:00 10/27/17 20:59 10/04/17 09:41 1 PUFF Heparin Sodium (Porcine) (Heparin Sq 5000 Unit/0.5ml) 5,000 unit Q8H SQ 09/27/17 22:00 10/27/17 21:59 Future Hold 09/29/17 21:39 5,000 UNIT Insulin Aspart (novoLOG ASPART) SLIDING SCALE If C... ACHS SC 09/29/17 08:00 10/29/17 05:59 10/04/17 13:34 3 UNITS Promethazine HCl 12.5 mg/Sodium Chloride 50.5 ml @ 202 mls/hr Q6H PRN IV 09/30/17 11:30 10/30/17 11:29 Ondansetron HCl (Zofran Inj) 4 mg Q6H PRN IV 09/30/17 11:30 10/30/17 11:29 Metoclopramide HCl (Reglan Inj) 10 mg Q6H PRN IV 09/30/17 11:30 10/30/17 11:29 Pneumococcal Polysaccharide Vaccine 1 ea PRN PRN N/A 09/30/17 11:30 10/30/17 11:29 Influenza Virus Vacc Triv Types A&B 1 ea PRN PRN N/A 09/30/17 11:30 10/30/17 11:29 Bisacodyl (Dulcolax Supp) 10 mg DAILY PRN [place] 09/30/17 11:30 10/30/17 11:29 Magnesium Hydroxide (Milk Of Magnesia Susp) 30 ml DAILY PRN PO 09/30/17 11:30 10/30/17 11:29 Acetaminophen (Tylenol Tab) 1,000 mg Q8H PRN PO 09/30/17 11:30 10/30/17 11:29 10/03/17 06:18 1,000 MG Acetaminophen 100 ml @ 400 mls/hr Q8H PRN IV 09/30/17 11:30 10/30/17 11:29 10/02/17 06:06 400 MLS/HR Naloxone HCl (Narcan Inj) 0.1 mg Q5M PRN IV 09/30/17 11:30 10/30/17 11:29 10/02/17 05:42 0.1 MG Senna/Docusate Sodium (Senokot S Tab) 2 tab HS PO 09/30/17 21:00 10/30/17 20:59 10/03/17 22:02 2 TAB Sodium Biphosphate/ Sodium Phosphate (Fleet Enema) 132 ml ONE PRN [place] 09/30/17 11:30 10/30/17 11:29 Hydroxyzine HCl (Vistaril Tab) 25 mg Q8H PRN PO 09/30/17 11:30 10/30/17 11:29 10/02/17 20:08 25 MG Al Hydroxide/Mg Hydroxide (Maalox Susp) 30 ml Q6H PRN PO 09/30/17 11:30 10/30/17 11:29 Famotidine (Pepcid Tab) 20 mg Q12 PRN PO 09/30/17 11:30 10/30/17 11:29 Insulin Glargine (Lantus Solostar Pen) blood sugar < 100-h... BID SC 09/30/17 21:00 10/27/17 20:59 10/04/17 09:40 10 UNITS Baclofen (Lioresal Tab) 5 mg BID PO 10/01/17 21:00 10/31/17 20:59 10/04/17 09:45 5 MG Menthol (Nice Oseas) 1 oseas PRN PRN OSEAS 10/01/17 12:15 10/31/17 12:14 Ketorolac Tromethamine (Toradol Inj) 15 mg Q6H PRN IV 10/02/17 08:30 10/07/17 08:29 10/04/17 06:34 15 MG Lidocaine (Lidoderm Patch 5%) 1 patch QAM TD 10/02/17 12:30 11/01/17 12:29 10/04/17 09:47 1 PATCH Miscellaneous (Remove Lidoderm Patch) 1 ea DAILY@21 N/A 10/02/17 21:00 11/01/17 20:59 10/03/17 21:00 1 EA Oxycodone/ Acetaminophen (Percocet 5-325mg Tab) 1 tab Q8 PRN PO 10/03/17 14:00 10/16/17 05:44 10/04/17 09:44 1 TAB
[2017-10-04 15:38] VITALS: BP 133/67; PULSE 59; TEMP 36.6; O2SAT 97
[2017-10-04 16:00] VITALS: O2SAT 97
[2017-10-04] MEDS: VALSARTAN 80 MG TAB PO SCH (17:11)
[2017-10-04] MEDS: DOCUSATE SODIUM/SENNA 50/8.6MG TAB PO SCH (21:00)
[2017-10-04 23:20] VITALS: BP 156/75; PULSE 67; TEMP 36.3; O2SAT 100
[2017-10-05] MEDS: hydrOXYzine HCL 25 MG TAB PO PRN ×3 (00:20→21:45)
[2017-10-05] MEDS: KETOROLAC TROMETHAMINE 15 MG/ML VIAL IV PRN (00:20)
[2017-10-05 07:25] VITALS: BP 156/76; PULSE 63; TEMP 36.8; O2SAT 98
[2017-10-05] MEDS: INSULIN GLARGINE SOLOSTAR 100 UNITS/ML 3 ML PEN SC SCH ×2 (09:00→21:54)
[2017-10-05] MEDS: VENLAFAXINE HCL XR 37.5 MG CAPXR PO SCH (09:05)
[2017-10-05] MEDS: GABAPENTIN 300 MG CAP PO SCH ×2 (09:05→21:44)
[2017-10-05] MEDS: POTASSIUM CHLORIDE 10 MEQ TABCR PO SCH ×2 (09:05→21:46)
[2017-10-05] MEDS: EZETIMIBE 10MG TAB PO SCH (09:05)
[2017-10-05] MEDS: TRIAMCINOLONE ACET 0.1% CR 15 GM TUBE EXT SCH ×2 (09:05→21:47)
[2017-10-05] MEDS: FLUTICASONE PROPIONATE NA SPR 16 GM BTL SCH (09:06)
[2017-10-05] MEDS: LORATADINE 10 MG TAB PO SCH (09:06)
[2017-10-05] MEDS: ASPIRIN 81 MG ECTAB PO SCH (09:07)
[2017-10-05] MEDS: PANTOprazole SOD 40 MG TAB PO SCH ×2 (09:07→21:46)
[2017-10-05] MEDS: FELODIPINE 5 MG TABCR PO SCH (09:08)
[2017-10-05] MEDS: BACLOFEN 10 MG TAB PO SCH ×2 (09:08→21:46)
[2017-10-05] MEDS: INSULIN ASPART 100 UNITS/ML 3 ML PEN SC SCH ×4 (09:09→21:00)
[2017-10-05] MEDS: LIDODERM (LIDOCAINE) PATCH 5% TD SCH (09:10)
[2017-10-05] MEDS: FLUTICASONE/SALMETEROL 250/50 (ADVAIR) 14 PUFF/1 INHALER INH SCH ×2 (10:10→21:47)
[2017-10-05] MEDS: VALSARTAN 80 MG TAB PO SCH (10:10)
[2017-10-05 10:13] LABS: HEMATOCRIT 29.7 % (37-47); HEMOGLOBIN 10.2 g/dL (12.0-16.0); MEAN CELL VOLUME 86.3 fL (80-100); MEAN CORPUSCULAR HEMOGLOBIN 29.7 pg (25-34); MEAN CORPUSCULAR HGB CONC 34.3 g/dl (32-36); MEAN PLATELET VOLUME 9.9 fL (7.4-10.4); PLATELET COUNT 230 K/uL (130-400); RED CELL DISTRIBUTION WIDTH CV 14.9 % (11.5-14.5); RED CELL DISTRIBUTION WIDTH SD 45.9 fL (36.4-46.3); WHITE BLOOD COUNT 5.53 K/uL (4.8-10.8)
[2017-10-05] MEDS: FUROSEMIDE 40 MG TAB PO SCH (10:20)
[2017-10-05] MEDS ORDERED: OXYC-57 PO (10:42)
--- NOTE | 2017-10-05 10:43 | Discharge Instructions ---
Discharge Instructions Date of Service Oct 05, 2017. Admission Reason for Admission: Spinal Stenosis Lumbar Spine Discharge Discharge Diagnosis / Problem: lumbar stenosis Discharge Goals Goal(s): Improve function Activity Recommendations Activity Limitations: per Instructions/Follow-up section . Instructions / Follow-Up Instructions / Follow-Up ACTIVITY RECOMMENDATIONS: SELF CARE INSTRUCTIONS AFTER THORACIC/LUMBAR FUSIONS 1. You may walk to your tolerance. It is good exercise for your legs and back. Expect some back and intermittent leg aches and pains. 2. You may perform "counter-top" level activities (make a sandwich, claus with a project, etc.). 3. No bending or lifting of more than 10 pounds or back twisting of any nature (roll like a log when turning in bed). 4. You may ride in a car for 20-30 minutes at a time. No driving until after your first visit with your doctor. 5. Frequent changes of position and restricting sitting to 30 minutes at a time will help limit the amount of back spasms and stiffness you may experience. 6. You may discontinue the use of ambulatory aids (cane, crutches, etc.) once your strength and confidence allow. 7. You may a class lineman the shower and let water strike your incision when you arrive home at least once daily. Do not take a tub bath, sit in a hot tub or go into a swimming pool until after your first recheck in the office. SPECIAL CARE INSTRUCTIONS: VERY IMPORTANT TO READ AND REVIEW A. Your surgical incision has been closed with a cosmetic suture under the skin that will dissolve in about 6 weeks. In 14 days, you can use a pair of clean scissors and cut the suture that is left outside of the skin at the ends of your incision. 1. The small skin tapes can be removed 7 days after surgery if they have not fallen off by that point. 2. You may keep the wound open to air as much as possible to promote healing after post-op day number 5 unless told otherwise by your doctor. 3. If you think the wound looks like it is becoming infected (redness or worsening drainage) and/or you are experiencing fever, chill or worsening back pain and muscle spasms, contact the office so that we may evaluate you as soon as possible. B. Complications are uncommon, but please contact us if you have any signs or symptoms of: 1. wound infection (fever higher than 102.5 degrees F, redness, separation of wound, drainage, or increasing pain from the incision) 2. blood clots in legs (pain, swelling, redness and warmth in legs) 3. urinary tract infection (fever higher than 102.5 degrees F, burning upon urination or increased frequency of urination) 4. nerve problems (inability to walk on your toes or heels, numbness, loss of bowel or bladder control) 5. any other symptoms that concern you C. Please call the office at if you have any concerns or questions about your operation or recovery. D. No smoking! Smoking drastically decreases the chance of a solid fusion. E. Do not take any anti-inflammatory medications (Indocin, Advil, Motrin, Aspirin, Naprosyn, etc.) as these may inhibit the chance of a solid fusion. Tylenol is okay to take for pain. MANAGING PAIN AFTER SPINAL SURGERY 1. Narcotic medication is intended for short-term use and will be provided for surgical pain. Surgical pain usually lasts for a period of 4-6 weeks. Narcotic medication includes Percocet, Vicodin, Darvocet, Tylenol #3 or Lortab. 2. Longer-term pain is more appropriately treated with non-narcotic medication such as Tylenol ES. 3. Muscle spasm is not appropriately treated with narcotics. Muscle relaxers such as Soma, Flexeril or Skelaxin can be used along with Tylenol ES. 4. Remember that we all live with some "aches and pains". This is not unusual or uncommon after an injury or as we get older. a. Back pain is expected and may include muscle spasms for 4 to 6 weeks after surgery. The pain should gradually improve. If the pain worsens for no apparent reason, please contact the office. b. Intermittent leg pain may also be experienced and should not be concerned about unless it worsens for no apparent reason. If so, please contact the office. 5. We will provide appropriate medication within the normal guidelines of their prescribed use. We will also be very cautious and aware of potential abuse and extended duration of patients' medication needs. a. Pain medications are for your comfort and to assist with sleep and rest so that the tissue can heal. They are not provided in order to return to normal activity and should not be used through the day. To do so or worsening pain at night can result from ongoing tissue damage and development of tolerance to the prescribed medicine. 6. Please allow 2-3 days to process refills. Prescriptions will not be mailed but must be picked up at the office. FOLLOW UP VISIT: Keep your scheduled follow-up appointment. Any questions, please call the office at . Current Hospital Diet Patient's current hospital diet: Diabetes Type 2 Diet Discharge Diet Recommended Diet: Regular Diet Procedures Procedures Performed: 1. Lumbar decompression medial facetectomies foraminotomies L3 L3-4 L4-5 L5-S1. #2 posterior spinal fusion L2-3 L3-4 L4-5 L5-S1. #3 history of posterior segmental instrumentation L2-3 L3-4 L4-5 L5-S1. #4 body fusion L4-5. #5 placement of titanium 11 x 22 mm cage L4-5. #6 basement of local autograft in the posterior gutters. #7 placement InFUSE collagen sponge, with master graft in the posterior lateral gutters and ostial amp in the interbody space. Pending Studies Studies pending at discharge: no Laboratory Results Hemoglobin A1c Test 09/27/17 15:23 Range/Units Estimated Average Glucose 111 mg/dl Hemoglobin A1c 5.5 4.5-5.6 % Medical Emergencies . Who to Call and When: Medical Emergencies: If at any time you feel your situation is an emergency, please call 911 immediately. . Non-Emergent Contact Non-Emergency issues call your: Primary Care Provider . "Provider Documentation" section prepared by Jesus Goss. .
--- NOTE | 2017-10-05 11:52 | Progress Note ---
Progress Note Date of Service Oct 05, 2017. Progress Note Back pain is controlled she is improving her ambulation. Vital signs are stable. On exam she is comfortable is good strength testing. Assessment status post lumbar decompression fusion. Plan at this time will continue to ambulate as tolerated today anticipate discharge to shelter tomorrow
[2017-10-05] MEDS: OXYCODONE/ACETAMINOPHEN 5-325 TAB PO PRN ×2 (13:30→21:45)
--- NOTE | 2017-10-05 13:50 | Progress Note ---
Medicine Progress Note Date & Time of Visit: Oct 05, 2017 at 13:46. Subjective Pt was seen and examined Lying in bed with no distress Pt said that she ambulated today in her room She said that she continue to have tenderness in her back She said that she has been on narcotic for more than 5 years Denies any chest pain, palpitation, dizziness and SOB Objective Last 8 Hrs Date Time Temp Pulse Resp B/P (MAP) Pulse Ox O2 Delivery O2 Flow Rate FiO2 10/05/17 07:40 Nasal Cannula 2.0 10/05/17 07:25 36.8 63 16 156/76 (102) 98 Nasal Cannula 1.0 Physical Exam: General- No acute distress Head- atraumatic Eyes- PERRL, EOMI ENT- oropharynx clear Neck- no JVD Lungs- No wheezing Heart- regular rhythm Abdomen- normal bowel sounds, soft Extremities- no calf tenderness Neuro- alert, oriented, PERRL Skin- warm & dry Laboratory Results: Last 24 Hours Test 10/04/17 17:08 10/04/17 20:32 10/05/17 08:11 10/05/17 10:02 Bedside Glucose 91 mg/dl 141 mg/dl 81 mg/dl White Blood Count 5.53 K/uL Red Blood Count 3.44 M/uL Hemoglobin 10.2 g/dL Hematocrit 29.7 % Mean Corpuscular Volume 86.3 fL Mean Corpuscular Hemoglobin 29.7 pg Mean Corpuscular Hemoglobin Concent 34.3 g/dl RDW Standard Deviation 45.9 fL RDW Coefficient of Variation 14.9 % Platelet Count 230 K/uL Mean Platelet Volume 9.9 fL Test 10/05/17 12:17 Bedside Glucose 88 mg/dl Assessment & Plan LUMBAR SPINAL STENOSIS WITH NEUROGENIC CLAUDICATION AND WEAKNESS S/P day#5 L2-S1 DECOMPRESSION AND FUSION by Dr. Goss Continue pain control Tolerated hydrocodone q8h, will changed to q6h Continue Toradol prn PT/OT PATRICIA drain continues to drain Fall precaution LETHARGY/DROWSINESS Due to narcotic Has been more awake and alert Continue hydrocodone prn ACUTE BLOOD LOSS ANEMIA Received 2 units PRBC on 10/01 for hemoglobin 7.2 Hemoglobin 10.2 today Continue monitor h/h and transfuse if hemoglobin drops below 8 Monitor CBC UTI (POA) Outpatient urine culture positive for E. coli on 09/24/17 Was given Bactrim as an outpatient and started on ceftriaxone inpatient Completed 5 doses ceftriaxone DM II Hgb A1c 5.5 on 09/2017 Hold oral diabetic meds On NovoLog and Lantus per protocol while hospitalized Monitor for hyperglycemia postoperatively secondary to steroids HTN BP stable Continue atenolol and felodipine valsartan resume Will resume lasix in am CKD III Baseline creat runs in the mid ones Creatine stable Avoid nephrotoxic agents Continue monitor BMP ANEMIA OF CKD Baseline hemoglobin 10-11 Hgb 8.6 yesterday Monitor CBC CHRONIC HYPONATREMIA Baseline sodium in the low 130s Possible related to diuretics Monitor BMP ASTHMA Asymptomatic Stable ANXIETY AND DEPRESSION Stable Continue Effexor DYSLIPIDEMIA Continue Zetia GERD continue PPI DVT PROPHYLAXIS As per Ortho CODE STATUS FULL CODE DISPOSITION Possible discharge to rehab tomorrow Current Inpatient Medications: Current Inpatient Medications Medications (Trade) Dose Ordered Sig/R[place]hawn Route Start Time Stop Time Status Last Admin Dose Admin Glucose (Glucose 40% Gel) 15-30 GRAMS 15 GRAMS... UD PRN PO 09/27/17 15:00 10/27/17 14:59 Glucose (Glucose Chew Tab) 4-8 Tablets 4 Tabl... UD PRN PO 09/27/17 15:00 10/27/17 14:59 Dextrose (Dextrose 50% 50ML Syringe) 25-50ML 25ML FOR ... UD PRN IV 09/27/17 15:00 10/27/17 14:59 Glucagon (Glucagon Inj) 1 mg UD PRN SQ 09/27/17 15:00 10/27/17 14:59 Carbohydrates (Carbohydrates For Hypoglycemia) 15-30 GRAMS 15 grams if BSG 54-69... UD PRN PO 09/27/17 15:00 10/27/17 14:59 Levalbuterol (Xopenex 0.63 Mg/ 3 Ml Neb) 0.63 mg Q6R PRN INH 09/27/17 16:00 10/27/17 15:59 Aspirin (Ecotrin Tab) 81 mg DAILY PO 09/28/17 09:00 10/28/17 08:59 10/05/17 09:07 81 MG Atenolol (Tenormin Tab) 25 mg BID PO 09/27/17 21:00 10/27/17 20:59 10/05/17 09:07 25 MG Baclofen (Lioresal Tab) 10 mg TID PRN PO 09/27/17 16:00 10/27/17 15:59 Future Hold 10/01/17 17:03 10 MG EZETIMIBE (Zetia Tab) 10 mg DAILY PO 09/28/17 09:00 10/28/17 08:59 10/05/17 09:05 10 MG Felodipine (Plendil Tabcr) 5 mg DAILY PO 09/28/17 09:00 10/28/17 08:59 10/05/17 09:08 5 MG Furosemide (Lasix Tab) 80 mg DAILY PO 09/28/17 09:00 10/28/17 08:59 Future hold 10/05/17 10:20 80 MG Gabapentin (Neurontin Cap) 300 mg BID PO 09/27/17 21:00 10/27/17 20:59 10/05/17 09:05 300 MG Loratadine (Claritin Tab) 10 mg DAILY PO 09/28/17 09:00 10/28/17 08:59 10/05/17 09:06 10 MG Oxycodone HCl (Oxycontin Tab) 40 mg Q12 PO 09/27/17 21:00 10/11/17 20:59 Future Hold 10/01/17 21:37 40 MG Potassium Chloride (Klor-Con M10) 10 meq BID PO 09/27/17 21:00 10/27/17 20:59 10/05/17 09:05 10 MEQ Triamcinolone Acetonide (Kenalog 0.1% Cream) 1 appln BID EXT 09/27/17 21:00 10/27/17 20:59 10/05/17 09:05 1 APPLN Valsartan (Diovan Tab) 320 mg DAILY PO 09/28/17 09:00 10/28/17 08:59 Future hold 10/05/17 10:10 320 MG Venlafaxine HCl (effeXOR EXTENDED REL CAP) 37.5 mg DAILY PO 09/28/17 09:00 10/28/17 08:59 10/05/17 09:05 37.5 MG Pantoprazole Sodium (Protonix Tab) 40 mg BID PO 09/27/17 21:00 10/27/17 20:59 10/05/17 09:07 40 MG Polyethylene (Miralax Powder Packet) 17 gm DAILY PRN PO 09/27/17 16:15 10/27/17 16:14 Fluticasone Propionate (Flonase Nasal [place]) 2 sprays DAILY NA 09/28/17 09:00 10/28/17 08:59 10/05/17 09:06 2 SPRAYS Salmeterol Xinafoate/ Fluticasone (Advair Diskus 250/50 Inh) 1 puff BID INH 09/27/17 21:00 10/27/17 20:59 10/05/17 10:10 1 PUFF Heparin Sodium (Porcine) (Heparin Sq 5000 Unit/0.5ml) 5,000 unit Q8H SQ 09/27/17 22:00 10/27/17 21:59 Future Hold 09/29/17 21:39 5,000 UNIT Insulin Aspart (novoLOG ASPART) SLIDING SCALE If C... ACHS SC 09/29/17 08:00 10/29/17 05:59 10/05/17 13:30 4 UNITS Promethazine HCl 12.5 mg/Sodium Chloride 50.5 ml @ 202 mls/hr Q6H PRN IV 09/30/17 11:30 10/30/17 11:29 Ondansetron HCl (Zofran Inj) 4 mg Q6H PRN IV 09/30/17 11:30 10/30/17 11:29 Metoclopramide HCl (Reglan Inj) 10 mg Q6H PRN IV 09/30/17 11:30 10/30/17 11:29 Pneumococcal Polysaccharide Vaccine 1 ea PRN PRN N/A 09/30/17 11:30 10/30/17 11:29 Influenza Virus Vacc Triv Types A&B 1 ea PRN PRN N/A 09/30/17 11:30 10/30/17 11:29 Bisacodyl (Dulcolax Supp) 10 mg DAILY PRN [place] 09/30/17 11:30 10/30/17 11:29 Magnesium Hydroxide (Milk Of Magnesia Susp) 30 ml DAILY PRN PO 09/30/17 11:30 10/30/17 11:29 Acetaminophen (Tylenol Tab) 1,000 mg Q8H PRN PO 09/30/17 11:30 10/30/17 11:29 10/03/17 06:18 1,000 MG Acetaminophen 100 ml @ 400 mls/hr Q8H PRN IV 09/30/17 11:30 10/30/17 11:29 10/02/17 06:06 400 MLS/HR Naloxone HCl (Narcan Inj) 0.1 mg Q5M PRN IV 09/30/17 11:30 10/30/17 11:29 10/02/17 05:42 0.1 MG Senna/Docusate Sodium (Senokot S Tab) 2 tab HS PO 09/30/17 21:00 10/30/17 20:59 10/03/17 22:02 2 TAB Sodium Biphosphate/ Sodium Phosphate (Fleet Enema) 132 ml ONE PRN [place] 09/30/17 11:30 10/30/17 11:29 Hydroxyzine HCl (Vistaril Tab) 25 mg Q8H PRN PO 09/30/17 11:30 10/30/17 11:29 10/05/17 13:32 25 MG Al Hydroxide/Mg Hydroxide (Maalox Susp) 30 ml Q6H PRN PO 09/30/17 11:30 10/30/17 11:29 Famotidine (Pepcid Tab) 20 mg Q12 PRN PO 09/30/17 11:30 10/30/17 11:29 Insulin Glargine (Lantus Solostar Pen) blood sugar < 100-h... BID SC 09/30/17 21:00 10/27/17 20:59 10/04/17 22:24 10 UNITS Baclofen (Lioresal Tab) 5 mg BID PO 10/01/17 21:00 10/31/17 20:59 10/05/17 09:08 5 MG Menthol (Nice Oseas) 1 oseas PRN PRN OSEAS 10/01/17 12:15 10/31/17 12:14 Ketorolac Tromethamine (Toradol Inj) 15 mg Q6H PRN IV 10/02/17 08:30 10/07/17 08:29 10/05/17 00:20 15 MG Lidocaine (Lidoderm Patch 5%) 1 patch QAM TD 10/02/17 12:30 11/01/17 12:29 10/05/17 09:10 1 PATCH Miscellaneous (Remove Lidoderm Patch) 1 ea DAILY@21 N/A 10/02/17 21:00 11/01/17 20:59 10/04/17 21:00 1 EA Oxycodone/ Acetaminophen (Percocet 5-325mg Tab) 1 tab Q8 PRN PO 10/03/17 14:00 10/16/17 05:44 10/05/17 13:30 1 TAB
[2017-10-05] MEDS ORDERED: LIDODERM (LIDOCAINE) PATCH 5% TD ONE (14:15)
[2017-10-05 15:16] VITALS: BP 144/71; PULSE 65; TEMP 37; O2SAT 96
[2017-10-05] MEDS: DOCUSATE SODIUM/SENNA 50/8.6MG TAB PO SCH (21:00)
[2017-10-05 22:45] VITALS: BP 142/63; PULSE 63; TEMP 36.9; O2SAT 99
[2017-10-06] MEDS: OXYCODONE/ACETAMINOPHEN 5-325 TAB PO PRN (03:35)
[2017-10-06] MEDS: hydrOXYzine HCL 25 MG TAB PO PRN (05:46)
[2017-10-06 06:56] VITALS: BP 139/72; PULSE 58; TEMP 36.6; O2SAT 99
[2017-10-06] MEDS: TRIAMCINOLONE ACET 0.1% CR 15 GM TUBE EXT SCH (08:45)
[2017-10-06] MEDS: FLUTICASONE/SALMETEROL 250/50 (ADVAIR) 14 PUFF/1 INHALER INH SCH (08:45)
[2017-10-06] MEDS: PANTOprazole SOD 40 MG TAB PO SCH (08:46)
[2017-10-06] MEDS: POTASSIUM CHLORIDE 10 MEQ TABCR PO SCH (08:46)
[2017-10-06] MEDS: VENLAFAXINE HCL XR 37.5 MG CAPXR PO SCH (08:46)
[2017-10-06] MEDS: FLUTICASONE PROPIONATE NA SPR 16 GM BTL SCH (08:46)
[2017-10-06] MEDS: GABAPENTIN 300 MG CAP PO SCH (08:46)
[2017-10-06] MEDS: FUROSEMIDE 40 MG TAB PO SCH (08:47)
[2017-10-06] MEDS: LORATADINE 10 MG TAB PO SCH (08:47)
[2017-10-06] MEDS: EZETIMIBE 10MG TAB PO SCH (08:48)
[2017-10-06] MEDS: BACLOFEN 10 MG TAB PO SCH (08:48)
[2017-10-06] MEDS: FELODIPINE 5 MG TABCR PO SCH (08:48)
[2017-10-06] MEDS: ASPIRIN 81 MG ECTAB PO SCH (08:48)
[2017-10-06] MEDS: VALSARTAN 80 MG TAB PO SCH (08:49)
[2017-10-06] MEDS: LIDODERM (LIDOCAINE) PATCH 5% TD SCH (08:49)
[2017-10-06] MEDS ORDERED: LIDODERM (LIDOCAINE) PATCH 5% TD SCH (09:00)
[2017-10-06] MEDS: INSULIN ASPART 100 UNITS/ML 3 ML PEN SC SCH ×2 (09:42→12:00)
[2017-10-06] MEDS: INSULIN GLARGINE SOLOSTAR 100 UNITS/ML 3 ML PEN SC SCH (09:43)
[2017-10-06 11:33] VITALS: BP 139/72; PULSE 58; TEMP 36.6; O2SAT 99
--- NOTE | 2017-10-06 12:22 | Discharge Summary ---
Orthopedic Discharge Summary Admission Date/Reason Sep 27, 2017 at 12:46 Spinal Stenosis Lumbar Spine. Discharge Date/Disposition Oct 06, 2017 [facility] facility Diagnosis Principal Diagnosis: Lumbar spinal stenosis Admission Physical Exam As per Admitting History & Physical. Hospital Course Patient was admitted to hospital with marked decline in ability to ambulate and significant back and leg pain. He has elected to undergo multilevel lumbar decompression and fusion. She had procedure tolerated this well and was taken to the orthopedic floor postoperatively. She progressed appropriately throughout the week. She progressed on a daily basis. PATRICIA drain decreasing appropriately. Leg strength and ambulation steadily improving. [facility] Discharge orders instructions can be found chart for further review. Discharge Instructions Please refer to the electronic Patient Visit Report (Discharge Instructions) for additional information.
== END 2017-10-06 13:48 | DRG 454 ==
LOC: C.MSW 12:46
PROVIDERS: ADMIT Orthopaedic Surgery Orthopaedic Surgery of the Spine; ATTEND Orthopaedic Surgery Orthopaedic Surgery of the Spine
PROC: 0ST20ZZ Resection of Lumbar Vertebral Disc, Open Approach (ICD-10-PCS; principal; 2017-09-30 07:45)
PROC: 0SG3071 Fusion of Lumbosacral Joint with Autologous Tissue Substitute, Posterior Approach, Posterior Column, Open Approach (ICD-10-PCS; principal; 2017-09-30 07:45)
PROC: 0SG1071 Fusion of 2 or more Lumbar Vertebral Joints with Autologous Tissue Substitute, Posterior Approach, Posterior Column, Open Approach (ICD-10-PCS; principal; 2017-09-30 07:45)
PROC: 0SG00AJ Fusion of Lumbar Vertebral Joint with Interbody Fusion Device, Posterior Approach, Anterior Column, Open Approach (ICD-10-PCS; principal; 2017-09-30 07:45)
DX: M48.062 Spinal stenosis, lumbar region with neurogenic claudication (principal); N39.0 Urinary tract infection, site not specified; E87.1 Hypo-osmolality and hyponatremia; D62 Acute posthemorrhagic anemia; I12.9 Hypertensive chronic kidney disease with stage 1 through stage 4 chronic kidney disease, or unspecified chronic kidney disease; E11.22 Type 2 diabetes mellitus with diabetic chronic kidney disease; N18.3 Chronic kidney disease, stage 3 (moderate); D63.1 Anemia in chronic kidney disease; E78.5 Hyperlipidemia, unspecified; F41.9 Anxiety disorder, unspecified; F32.9 Major depressive disorder, single episode, unspecified; Z79.82 Long term (current) use of aspirin; Z79.84 Long term (current) use of oral hypoglycemic drugs; Z79.899 Other long term (current) drug therapy; Z87.891 Personal history of nicotine dependence; R53.83 Other fatigue; T40.605A Adverse effect of unspecified narcotics, initial encounter